=== PATIENT | female | born 1955 | race Caucasian/White ===

== ENCOUNTER 2016-12-06 01:03 | Observation (INO) ==
--- NOTE | 2016-12-06 01:14 | Emergency Department Note ---
Disposition Clinical Impression: Neurologic abnormality Disposition: Admitted As Inpatient Condition: Fair Time of Disposition: 04:12 Neuro HPI - General Chief Complaint: ED Neuro Symptoms/Deficit Stated Complaint: slurred speech Time Seen by Provider: 12/06/16 01:06 Source: patient, EMS Limitations: no limitations Nursing Notes Reviewed: Yes Vital Signs Reviewed: Yes - History of Present Illness HPI Narrative: Ms. Harris, a 61-year-old female, presents from home via EMS for evaluation of neuro symptoms. Described as weakness and slurred speech. Onset 13:30 on 12/05 (11.5 hours prior to presentation). Patient states she typically has these symptoms when she is hypoglycemic. Her family was giving her food to correct however they did not test her blood glucose. Her blood glucose this morning was 79. Patient also admits to slurring of speech. She is unsure specifically what time this began but believes it was around the same time as her weakness at 13:30. It is unchanged to presentation. There is no family bedside for confirmation. Patient denies any other symptoms. PMH: Obesity, coronary smoker, diabetes, hypothyroidism, CAD, hyperlipidemia, retention. No history of ACS, TIA, CVA, coagulopathy. Current antiplatelet of aspirin 81 mg daily. No anticoagulation. - Related Data Home Medications: Home Medications Medication Instructions Recorded Confirmed ALPRAZolam [Xanax 0.5 MG Tablet] 0.5 mg PO TID 01/30/15 04/22/16 Amitriptyline [Elavil] 50 mg PO HS 01/30/15 04/22/16 Aspirin [Adult Low Dose Aspirin EC] 81 mg PO DAILY 01/30/15 04/22/16 Atorvastatin Calcium [Lipitor] 20 mg PO DAILY 01/30/15 04/22/16 Duloxetine HCl [Cymbalta] 60 mg PO DAILY 01/30/15 04/22/16 Furosemide [Lasix] 10 mg PO DAILY PRN 01/30/15 04/22/16 Levothyroxine [Synthroid] 275 mcg PO DAILY 01/30/15 04/22/16 Lisinopril [Zestril] 40 mg PO DAILY 01/30/15 04/22/16 Loratadine [Claritin] 10 mg PO HS 01/30/15 04/22/16 OxyCODONE ER (12 HR) [Oxycontin] 15 mg PO Q4-6H PRN 01/30/15 04/22/16 Potassium Chloride [K-Tab ER] 20 meq PO DAILY PRN 01/30/15 04/22/16 Pregabalin [Lyrica] 100 mg PO BID 01/30/15 04/22/16 Trazodone HCl 200 mg PO HS 01/30/15 04/22/16 Venlafaxine [Effexor] 75 mg PO BID 01/30/15 04/22/16 metFORMIN [Glucophage] 750 mg PO HS 01/30/15 04/22/16 Cholecalciferol (Vitamin D3) 50,000 unit PO QWEEK 07/08/15 04/22/16 [Vitamin D] Insulin ASPART [NovoLOG] 9 unit SQ TID 07/08/15 04/22/16 Insulin Glargine,Hum.rec.anlog 73 unit SQ BID 07/08/15 04/22/16 [Lantus Solostar] SitaGLIPtin [Januvia] 100 mg PO DAILY 07/08/15 04/22/16 amLODIPine [Norvasc] 5 mg PO DAILY 04/22/16 04/22/16 Previous Rx's Medication Instructions Recorded Phenazopyridine [Pyridium] 200 mg PO TID #15 tablet 07/04/15 Dicyclomine [Bentyl] 20 mg PO QID PRN #40 capsule 07/09/15 Allergies/Adverse Reactions: Allergies Allergy/AdvReac Type Severity Reaction Status Date / Time Sulfa (Sulfonamide Allergy Intermediate Hives Verified 01/09/15 15:16 Antibiotics) cefdinir [From Omnicef] Allergy Difficulty Verified 01/30/15 13:44 Breathing Ether Allergy Anaphylaxis Verified 01/30/15 13:44 Penicillins [PCN] Allergy Anaphylaxis Verified 01/09/15 15:16 Methadone [From Methadose] AdvReac Drowsy Verified 01/09/15 15:18 All systems ED: reviewed and negative except as stated. Past Medical History - Past Medical History Medical history: Reports: asthma, cancer, DVT, diabetes, hyperlipidemia, hypertension, migraine, renal disease, thyroid disease, other Surgical history: Reports: herniorrhaphy, hysterectomy, ZANDER/BSO, other Psychiatric history: Reports: anxiety, depression, panic disorder TWISTER IN history: Reports: no TWISTER IN history - Social History Smoking Status: Light tobacco smoker Smokeless Tobacco Status: No Alcohol use: Reports: unknown Drug use: Reports: unknown Physical Exam Vital Signs Reviewed General: Patient is alert, oriented, and in no acute distress. HEENT: No facial asymmetry. Head is normocephalic and atraumatic. PERRLA, EOMI. oral mucosa moist. Trachea midline. Cardiovascular: Heart regular rate and rhythm without clicks, rubs, gallops, or murmurs. No JVD. PMI nondisplaced. Respiratory: Symmetric chest rise with good respiratory effort. Bilateral breath sounds are clear without wheezing, crackles, or rhonchi. Abdomen: Obese. Bowel sounds present normoactive x-4 quadrants. Abdomen is soft, nondistended, and nontender. Musculoskeletal: Muscle strength 5/5 in left lower extremity. Strength 5/5 in left upper extremity. Strength 4/5 and right upper extremity. Patient refuses strength testing or motion testing and right lower extremity citing diabetic ulcer on her right anterior tibia as well as chronic lower back pain. Neuro: Cranial nerves II through XII without deficit. No upper or lower extremity limb drift. No pronator drift. Negative heel to trevizo with left heel on right trevizo. Negative rapid alternating hands. Sensation light touch intact. Very mild slurring of speech; no family at bedside to compare to her baseline. Psych: Patient's affect is appropriate for situation. - General Limitations: no limitations General appearance: alert, in no apparent distress Course Course Narrative: Patient is not a TPA candidate given her last known normal is 11.5 hours prior to presentation. CT head negative for acute hemorrhage per radiology read. EKG unremarkable. Negative troponin. Chest x-ray unremarkable per radiology read. Blood work does show mild leukocytosis however it is otherwise unremarkable; elevated creatinine which is consistent with her baseline. Recommended admission given patient's multiple comorbidities and somewhat concerning story. Spoke with him in hospitals who agrees to accept her to his service for continued evaluation workup. Vital Signs Temperature 98.7 F 12/06/16 01:04 Pulse Rate 86 12/06/16 01:04 Respiratory Rate 18 12/06/16 01:04 Blood Pressure 132/107 12/06/16 01:04 O2 Sat by Pulse Oximetry 97 12/06/16 01:04 Temperature 98.4 F 12/06/16 02:50 Pulse Rate 85 06/30/17 02:50 Respiratory Rate 18 12/06/16 02:50 Blood Pressure 124/98 12/06/16 02:50 O2 Sat by Pulse Oximetry 97 12/06/16 01:04 Oxygen Delivery Oxygen Delivery Room Air Neuro Symptoms/Deficit - Medical Records Medical records reviewed: Yes I reviewed the patient's medical records. - Lab Data Lab results reviewed: Yes I reviewed the patient's lab results. Result diagrams: 12/06/16 01:15 12/06/16 01:15 Lab Results 12/06/16 12/06/16 12/06/16 Range/Units 01:12 01:15 01:15 WBC 12.1 H (4.3-11.1) K/mcL RBC 4.84 (3.82-4.97) M/mcL Hgb 13.6 (11.5-15.4) g/dL Hct 42.3 (35.3-44.9) % MCV 87.4 (83.0-100.0) fL MCH 28.1 (28.0-33.3) pg MCHC 32.2 (31.6-35.5) g/dL RDW 15.5 H (11.5-14.5) % Plt Count 289 (140-400) K/mcL MPV 10.0 (9.4-12.4) fL Immature Gran % 0.4 (0-4) % Seg Neutrophils % 72.4 % Lymphocytes % 19.2 % Monocytes % 7.0 % Eosinophils % 0.5 % Basophils % 0.5 % Neutrophils # 8.8 (1.6-8.9) K/mcL Lymphocytes # 2.3 (0.6-4.6) K/mcL Monocytes # 0.9 (0.0-1.3) K/mcL Eosinophils # 0.1 (0.0-0.6) K/mcL Basophils # 0.1 (0.0-0.2) K/mcL PT 10.5 (9.4-12.1) Seconds INR 1.0 APTT 33.3 (26.0-36.0) Seconds Sodium (136-145) mEq/L Potassium (3.5-4.5) mEq/L Chloride (98-109) mEq/L Carbon Dioxide (19-29) mEq/L BUN (7-20) mg/dL Creatinine (0.57-1.11) mg/dL Est GFR ( Amer) (> 60) Est GFR (Non-Af Amer) (> 60) BUN/Creatinine Ratio (6-26) Glucose (70-99) mg/dL POC Glucose 260 H (58-89) Calculated Osmolality (280-300) Calcium (8.6-10.8) mg/dL Troponin I (0-0.03) ng/mL 12/06/16 12/06/16 Range/Units 01:15 01:15 WBC (4.3-11.1) K/mcL RBC (3.82-4.97) M/mcL Hgb (11.5-15.4) g/dL Hct (35.3-44.9) % MCV (83.0-100.0) fL MCH (28.0-33.3) pg MCHC (31.6-35.5) g/dL RDW (11.5-14.5) % Plt Count (140-400) K/mcL MPV (9.4-12.4) fL Immature Gran % (0-4) % Seg Neutrophils % % Lymphocytes % % Monocytes % % Eosinophils % % Basophils % % Neutrophils # (1.6-8.9) K/mcL Lymphocytes # (0.6-4.6) K/mcL Monocytes # (0.0-1.3) K/mcL Eosinophils # (0.0-0.6) K/mcL Basophils # (0.0-0.2) K/mcL PT (9.4-12.1) Seconds INR APTT (26.0-36.0) Seconds Sodium 139 (136-145) mEq/L Potassium 4.0 (3.5-4.5) mEq/L Chloride 103 (98-109) mEq/L Carbon Dioxide 29 (19-29) mEq/L BUN 15 (7-20) mg/dL Creatinine 1.15 H (0.57-1.11) mg/dL Est GFR ( Amer) 58 L (> 60) Est GFR (Non-Af Amer) 48 L (> 60) BUN/Creatinine Ratio 13 (6-26) Glucose 256 H (70-99) mg/dL POC Glucose (58-89) Calculated Osmolality 298 (280-300) Calcium 9.4 (8.6-10.8) mg/dL Troponin I 0.00 (0-0.03) ng/mL - Radiology Data Radiology results reviewed: Yes I reviewed the patient's radiology results. Head CT 12/06/16 01:14 IMPRESSION: No acute intracranial abnormality. D/ / Rangel Vivas MD / Rangel Vivas MD Interpreting Provider: Rangel Vivas MD - EKG Data EKG attestation: Yes I reviewed and interpreted this EKG. EKG results narrative: EKG data 12/06/16 at 01:24 interpreted as sinus rhythm with a rate of 80. NE 202 , to rest and 2, QT/QTC 360 sinus 396. Normal axis. Nonspecific ST-T changes. Compared to previous dated 12/14/2013 showed no acute ischemic changes or comparison. NIH Stroke Scale - Level of Consciousness LOC: Alert - LOC Questions LOC Questions: Answers both correctly - LOC Commands LOC Commands: Performs both correctly - Best Gaze Best Gaze: Normal - Visual Visual: No visual loss - Facial Palsy Facial Palsy: Normal - Motor Arms Motor Arm-Left: No drift for 10 seconds Motor Arm-Right: No drift for 10 seconds - Motor Legs Motor Leg-Left: No drift for 5 seconds Motor Leg-Right: No drift for 5 seconds (Patient refused due to diabetic ulcer and chronic back pain) - Limb Ataxia Limb Ataxia: Absent of affected limb too weak to perform exam - Sensory Sensory: Normal - Best Language Best Language: No aphasia - Dysarthria Dysarthria: Mild, slurs some words - Extinction and Inattention Extinction and Inattention: Normal - NIHSS Total Score NIHSS Total Score: 1 TPA Checklist - Source Information Source: Patient - Eligibilty for IV tPA 1. LKW equal to or less than 4.5 hours be before treatment: No - LKW: 3-4.5 hrs Add. Warnings/Precautions Patient/family understanding: The patient/family members have been counseled and understood the risk, benefit , and alternatives of treatment.
--- NOTE | 2016-12-06 01:20 | Emergency Department Note ---
START Narrative - START START: I examined this patient and my medical decision-making was reviewed with the CHICK GRADER/PA/Advanced Practice Nurse/Resident Physician. I agree with the documented findings, disposition and treatment plan as described except to the extent set forth below. ED attending note: Patient seen with emergency medicine resident Dr. Bartlett. Please see a copy of his note for details of the H&P, evaluation, management and disposition of this patient. We independently had [id number] contact with the patient Briefly: A 61-year-old female by EMS presents with history of slurred speech. Symptoms began at 1:30 yesterday afternoon. Patient is diabetic and thought that she had blood sugars were low although her sugars measured at home was measured was 73. There is approximately 220 per EMS. Her NIH is 1. There was some mild apraxia but no aphasia no facial asymmetry slight weakness of the right upper extremity. The patient is well outside the window of TPA and so possibly is not a stroke alert at this time. Noncontrast head CT EKG labs and chest x-ray are pending. Disposition pending.
[2016-12-06 01:29] LABS: Basophils # 0.1 K/mcL (0.0-0.2); Basophils % 0.5 %; Eosinophils # 0.1 K/mcL (0.0-0.6); Eosinophils % 0.5 %; Hematocrit 42.3 % (35.3-44.9); Hemoglobin 13.6 g/dL (11.5-15.4); Immature Granulocytes % 0.4 % (0-4); Lymphocytes # 2.3 K/mcL (0.6-4.6); Lymphocytes % 19.2 %; Mean Corpuscular HGB Conc 32.2 g/dL (31.6-35.5); Mean Corpuscular Hemoglobin 28.1 pg (28.0-33.3); Mean Corpuscular Volume 87.4 fL (83.0-100.0); Monocytes # 0.9 K/mcL (0.0-1.3); Neutrophils # 8.8 K/mcL (1.6-8.9); Platelet Count 289 K/mcL (140-400); Red Blood Count 4.84 M/mcL (3.82-4.97); Red Cell Distribution Width 15.5 % (11.5-14.5); Segmented Neutrophils % 72.4 %
[2016-12-06 01:38] LABS: Prothrombin Time 10.5 Seconds (9.4-12.1)
[2016-12-06 01:40] LABS: Activated Partial Thrombo Time 33.3 Seconds (26.0-36.0)
[2016-12-06 01:42] LABS: Calcium 9.4 mg/dL (8.6-10.8)
[2016-12-06] MEDS ORDERED: Aspirin 325 MG TABLET PO ONE (03:00)
--- NOTE | 2016-12-06 04:15 | Internal Med History&Physical ---
Date of Encounter: 12/06/16 Time of Encounter: 04:15 Assessment and Plan (1) Slurred speech Current visit: Yes Status: Acute we need to exclude TIA. Will consult speech therapy. Obtain MRI of the brain without contrast, carotid Doppler, echocardiogram. Consider Neurology consult, based on the test results. (2) Lethargy Current visit: Yes Status: Acute Possibly due to hypoglycemia. Will obtain UA to exclude UTI and check TSH level (3) Diabetes mellitus Current visit: Yes Status: Chronic Continue home medications and sliding scale insulin (4) Hypertension Current visit: Yes Status: Chronic Continue home medications Qualifiers: Hypertension type: essential hypertension Qualified Code(s): I10 - Essential (primary) hypertension (5) Hypothyroidism Current visit: Yes Status: Chronic Continue synthroid. Check TSH level Qualifiers: Hypothyroidism type: unspecified Qualified Code(s): E03.9 - Hypothyroidism , unspecified (6) Chronic back pain Current visit: Yes Status: Chronic COntinue home medications Qualifiers: Back pain location: low back pain Back pain laterality: unspecified Sciatica presence: unspecified whether sciatica present Qualified Code(s): M54.5 - Low back pain; G89.29 - Other chronic pain Internal Medicine - H&P: HPI Chief complaint: slurred speech Admitted From: Emergency Dept Plans for Post Hospital Care: Home History of present illness: Ms. Harris is a 61 year old female With h/o diabetes, hypothyroidism, CAD, hypertension, chronic back pain She presented to the ER with feeling lethargic her family was concerned about hypoglycemia and fed her. She was noted to have slurred speech and hence brought to the emergency department. Pt reports that her grand-daughter was concerned about slurred speech, but pt is not sure. She denies difficulty swallowing or choking. She denies facial weakness, blurry vision. She has 3 day h/o frontal headache. She denies weakness of the extremities (she has long h/o numbness of the right leg below the knee, secondary to back surgery). Chest pain, shortness of breath, nausea, vomiting, fever, chills, abdominal pain, dysuria, hematuria, change in bowel habits. She was evaluated in the emergency department and CT head reported No acute intracranial abnormality. NIHSS 1. Pt was outside window for thrombolysis (11.5 hours prior to presentation), hence ER physician did not consult neurologist. He is admitted to the hospitalist service for further management. Past Med Surg Social Fam HX - Past Medical History Medical history: asthma, cancer, DVT, diabetes, hyperlipidemia, hypertension, migraine, renal disease, thyroid disease, other Psychiatric history: anxiety, depression, panic disorder - Past Surgical History Surgical History: herniorrhaphy, hysterectomy, ZANDER/BSO, other - Social History Smoking Status: Light tobacco smoker Smokeless Tobacco Status: No Alcohol use: unknown Drug use: unknown - Family History Father Living Status: Hx Family Cardiac Disorders: Yes (HTN) Hx Family Neuromuscular Disorders: Yes Internal Medicine - H&P: Meds ALPRAZolam [Xanax 0.5 MG Tablet] 0.5 mg PO TID 01/30/15 [History] Amitriptyline [Elavil] 50 mg PO HS 01/30/15 [History] Aspirin [Adult Low Dose Aspirin EC] 81 mg PO DAILY 01/30/15 [History] Atorvastatin Calcium [Lipitor] 20 mg PO DAILY 01/30/15 [History] Duloxetine HCl [Cymbalta] 60 mg PO DAILY 01/30/15 [History] Furosemide [Lasix] 10 mg PO DAILY PRN 01/30/15 [History] Levothyroxine [Synthroid] 275 mcg PO DAILY 01/30/15 [History] Lisinopril [Zestril] 40 mg PO DAILY 01/30/15 [History] Loratadine [Claritin] 10 mg PO HS 01/30/15 [History] OxyCODONE ER (12 HR) [Oxycontin] 15 mg PO Q4-6H PRN 01/30/15 [History] Potassium Chloride [K-Tab ER] 20 meq PO DAILY PRN 01/30/15 [History] Pregabalin [Lyrica] 100 mg PO BID 01/30/15 [History] Trazodone HCl 200 mg PO HS 01/30/15 [History] Venlafaxine [Effexor] 75 mg PO BID 01/30/15 [History] metFORMIN [Glucophage] 750 mg PO HS 01/30/15 [History] Phenazopyridine [Pyridium] 200 mg PO TID #15 tablet 07/04/15 [Rx] Cholecalciferol (Vitamin D3) [Vitamin D] 50,000 unit PO QWEEK 07/08/15 [History] Insulin ASPART [NovoLOG] 9 unit SQ TID 07/08/15 [History] Insulin Glargine,Hum.rec.anlog [Lantus Solostar] 73 unit SQ BID 07/08/15 [ History] SitaGLIPtin [Januvia] 100 mg PO DAILY 07/08/15 [History] Dicyclomine [Bentyl] 20 mg PO QID PRN #40 capsule 07/09/15 [Rx] amLODIPine [Norvasc] 5 mg PO DAILY 04/22/16 [History] Allergies Sulfa (Sulfonamide Antibiotics) Allergy (Intermediate, Verified 01/09/15 15:16) Hives cefdinir [From Omnicef] Allergy (Verified 01/30/15 13:44) Difficulty Breathing Ether Allergy (Verified 01/30/15 13:44) Anaphylaxis Penicillins [PCN] Allergy (Verified 01/09/15 15:16) Anaphylaxis Methadone [From Methadose] Adverse Reaction (Verified 01/09/15 15:18) Drowsy All Systems PM: A 10-system review of systems was performed and is negative for pertinent findings except as documented above in the HPI. - Constitutional Vitals: Temp Pulse Resp BP Pulse Ox 98.4 F 85 18 124/98 97 12/06/16 02:50 12/06/16 02:50 12/06/16 02:50 12/06/16 02:50 12/06/16 01:04 Exam: General: Not in acute distress at the time of my evaluation HEENT: Oral mucosa is moist. No conjunctival palor or scleral icterus Neck: No obvious neck swellings Lungs: Clear to auscultation Cardiac: Regular rate and rhythm. Systolic murmur present Abdomen: Soft, non tender. Bowel sounds present Genitourinary: No basurto catheter Neurological: Alert and oriented. No gross cranial nerve weakness or limb weakness noted. Chronic right leg numbness Psych: Not aggressive or agitated Extremities: no significant leg edema Skin: No generalized rash Internal Med - H&P Results - Labs CBC & Chem 7: 12/06/16 01:15 12/06/16 04:33 - EKG Data -: EKG Interpreted by Myself EKG shows normal: sinus rhythm Rate: normal - Impressions ITS Impressions Head CT 12/06/16 01:14 IMPRESSION: No acute intracranial abnormality. D/ / Rangel Vivas MD / Rangel Vivas MD Interpreting Provider: Rangel Vivas MD
[2016-12-06] MEDS ORDERED: Naloxone 0.4 MG/ML INJ IVP PRN (04:20)
[2016-12-06 05:08] LABS: BUN/Creatinine Ratio 14 (6-26); Blood Urea Nitrogen 15 mg/dL (7-20); Calcium 9.4 mg/dL (8.6-10.8); Carbon Dioxide 30 mEq/L (19-29); Chloride 104 mEq/L (98-109); Chol/HDL Ratio 4.6 (0-4.9); Cholesterol 114 mg/dL (< 200); Glucose 174 mg/dL (70-99); HDL Cholesterol 25 mg/dL (40-59); LDL Cholesterol,Calculated 42 mg/dL (0-99); Magnesium 1.7 mg/dL (1.6-2.6); Osmolality,Calculated 295 (280-300); Potassium 3.9 mEq/L (3.5-4.5); Sodium 140 mEq/L (136-145); Triglycerides 233 mg/dL (< 150); eGFR For African Americans > 60 (> 60); eGFR For Non-African Americans 51 (> 60)
[2016-12-06] MEDS ORDERED: D5% in Water 1,000 ML IVC PRN (06:16)
[2016-12-06] MEDS ORDERED: Dextrose Gel 15 GM PO PRN ×2 (06:16)
[2016-12-06] MEDS ORDERED: *HR* Dextrose 50 % in Water (Syg) 50 ML SYRINGE IVP PRN (06:16)
[2016-12-06] MEDS: Insulin LISPRO 300 UNITS/3 ML VIAL SQ SCH ×4 (07:39→17:05)
[2016-12-06] MEDS ORDERED: Perflutren Lipid Microsphere 1.3 ML in 0.9 % Sodium Chloride 8.7 ML IVP ONE (09:52)
[2016-12-06] MEDS ORDERED: SUMAtriptan succinate 50 MG TABLET PO PRN (12:13)
[2016-12-06] MEDS ORDERED: Acetaminophen/Butalbital/CaffeineTABLET PO PRN (12:13)
[2016-12-06] MEDS ORDERED: tiZANidine 4 MG TABLET PO PRN (12:13)
[2016-12-06] MEDS ORDERED: Furosemide 20 MG TABLET PO PRN (12:13)
[2016-12-06] MEDS: *HR* OxyCODONE Immed Rel 15 MG TABLET PO PRN (13:09)
[2016-12-06] MEDS: ALPRAZolam 0.5 MG TABLET PO SCH ×2 (13:10→20:25)
[2016-12-06] MEDS: Pregabalin 75 MG CAPSULE PO SCH ×2 (13:10→20:25)
[2016-12-06] MEDS: Cholecalciferol (D-3) 1,000 UNIT TABLET PO SCH (13:10)
--- NOTE | 2016-12-06 13:12 | Electrocardiograph Report ---
[place] [id number] Test Date: 2016-12-06 Pat Name: Buffy Harris Department: 105 Room: [id number] Gender: F Telephone Answering Service Operator: : [id number] Requested By: Vernon Bartlett Order Number: [id number] Reading MD: Patrice Simth MD Measurements Intervals [place] Rate: 80 P: 42 CA: 202 QRS: -5 QRSD: 92 T: 42 QT: 360 QTc: 396 Interpretive Statements SINUS RHYTHM LOW QRS VOLTAGE IN PRECORDIAL LEADS BASELINE ARTIFACT Electronically Signed On 12-06-2016 13:10:25 EDT by Patrice Smith MD
--- NOTE | 2016-12-06 15:18 | Neurology - Consult Note ---
Date of Encounter: 12/06/16 Time of Encounter: 15:13 Assessment and Plan (1) TIA (transient ischemic attack) Current Visit: Yes Status: Acute Patient developed lethargy, somnolence and slurred speech lasting less than few hours in duration without focal deficits with rapidly improvement. Currently, patient has no focal neurological deficits and her speech fluency and language content are normalized, no focal weakness except right leg weakness which is chronic in nature. The symptoms can certainly be complicated by medical conditions/possible medication side effects although TIA work up is certainly needed. Will agree with obtaining echocardiography and carotid artery duplex study. Will Continue aspirin 81mg daily without change at this time. Please continue medical and supportive care Qualifiers: Transient cerebral ischemia type: unspecified Qualified Code(s): G45.9 - Transient cerebral ischemic attack, unspecified History of Present Illness Chief complaint: lethagy and slurred speech HPI: Ms. Harris is a 61 year old female 61 year old woman with PMH significant for DM , HTN, obesity, chronic back pain who developed an episode of lethagy, somnolence and speech difficulty. This occurred in this morning, she was at her home and became lethagic to a point that her granddaughter had to yell at her to try to keep her awake. At the time, she was found to have slurry speech and though that she might be having a stroke and brought to ER. At the time when she arrived to ER her symptoms rapidly improved. She completed MR of brain without contrast which showed no acute infarct. At the time of her interview, her speech appears intact, denies significant focal weakness. 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 Takes Aspirin 81mg daily. Past Med Surg Social Fam HX - Past Medical History Medical history: asthma, cancer, DVT, diabetes, hyperlipidemia, hypertension, migraine, renal disease, thyroid disease, other Psychiatric history: anxiety, depression, panic disorder - Past Surgical History Surgical History: herniorrhaphy, hysterectomy, ZANDER/BSO, other - Social History Smoking Status: Light tobacco smoker Smokeless Tobacco Status: No Alcohol use: unknown Drug use: unknown - Family History Father Living Status: Hx Family Cardiac Disorders: Yes (HTN) Hx Family Neuromuscular Disorders: Yes Medications and Allergies ALPRAZolam [Xanax 0.5 MG Tablet] 0.5 mg PO TID 01/30/15 [History] Amitriptyline [Elavil] 50 mg PO HS 01/30/15 [History] Aspirin [Adult Low Dose Aspirin EC] 81 mg PO DAILY 01/30/15 [History] Atorvastatin Calcium [Lipitor] 40 mg PO DAILY 01/30/15 [History] Furosemide [Lasix] 20 mg PO DAILY PRN 01/30/15 [History] Levothyroxine [Synthroid] 275 mcg PO DAILY 01/30/15 [History] Lisinopril [Zestril] 20 mg PO DAILY 01/30/15 [History] Loratadine [Claritin] 10 mg PO HS 01/30/15 [History] Potassium Chloride [K-Tab ER] 20 meq PO DAILY PRN 01/30/15 [History] Pregabalin [Lyrica] 75 mg PO TID 01/30/15 [History] Trazodone HCl 200 mg PO HS 01/30/15 [History] Venlafaxine [Effexor] 75 mg PO BID 01/30/15 [History] Cholecalciferol (Vitamin D3) [Vitamin D] 50,000 unit PO QWEEK 07/08/15 [History] Insulin ASPART [NovoLOG] 9 unit SQ TIDWM 07/08/15 [History] Insulin Glargine,Hum.rec.anlog [Lantus Solostar] 70 unit SQ BID 07/08/15 [ History] SitaGLIPtin [Januvia] 100 mg PO DAILY 07/08/15 [History] amLODIPine [Norvasc] 5 mg PO DAILY 04/22/16 [History] Butalbital/Aspirin/Caffeine [Fiorinal 50-325-40 mg Capsule] 1 cap PO BID PRN [History] Ferrous Sulfate [Iron] 325 mg PO DAILY 12/06/16 [History] Metformin HCl [Glucophage Xr] 750 mg PO DAILY 12/06/16 [History] Oxycodone HCl 15 mg PO Q6H PRN 12/06/16 [History] SUMAtriptan Succinate [Imitrex] 100 mg PO DAILY PRN 12/06/16 [History] Tizanidine HCl 4 mg PO TID PRN 12/06/16 [History] Allergies Sulfa (Sulfonamide Antibiotics) Allergy (Intermediate, Verified 01/09/15 15:16) Hives cefdinir [From Omnicef] Allergy (Verified 01/30/15 13:44) Difficulty Breathing Ether Allergy (Verified 01/30/15 13:44) Anaphylaxis Penicillins [PCN] Allergy (Verified 01/09/15 15:16) Anaphylaxis Methadone [From Methadose] Adverse Reaction (Verified 01/09/15 15:18) Drowsy All Systems: A 10-system review of systems was performed and is negative for pertinent findings except as documented above in the HPI. Physical Examination - Vital Signs Vital Signs: Initial Vital Signs Temp Pulse Resp BP Pulse Ox 98.7 F 86 18 132/107 97 12/06/16 01:04 12/06/16 01:04 12/06/16 01:04 12/06/16 01:04 12/06/16 01:04 - Constitutional General appearance: chronically ill - Neurologic Sensorimotor examination: other (Grossly intact in her upper extremities. Right legis in wrapping due to skin infection) Motor examination - right side: 5/5: deltoids, biceps, triceps, wrist flexion, wrist extension, small parts assembler Motor examination - left side: 5/5: deltoids, biceps, triceps, wrist flexion, wrist extension, hip flexors, small parts assembler, quadriceps, tibialis Anterior, toe extension (EHL), plantarflexion Detailed sensory examination: other (Grossly intact, except unable to check right leg due to wrapping) Reflexes: Biceps: 0, Triceps: 0, Brachioradialis: 0, Patella: 0, Achilles: 0 Mental Status Examination: awake, alert, oriented to person, oriented to place, oriented to time, follows commands appropriately, answers questions appropriately, no agnosia, no aphasia, no aproxia Cranial nerve examination: PERRL, EOMI, visual lora intact, corneal reflexes brisk symmetrically, sensory to face intact, mastication intact, no facial asymmetry is present, no dysarthria, hearing is intact symmetrically, soft palate elevates bilaterally upon phonation, gag reflex intact, flexes SCM and trapezius muscles symmetrically with full power, tongue protrudes midline, no atrophy or facial fasiculations present Results - Laboratory Findings CBC and BMP: 12/06/16 01:15 12/06/16 04:33 Abnormal lab findings: Abnormal lab results WBC 12.1 K/mcL (4.3-11.1) H 12/06/16 01:15 RDW 15.5 % (11.5-14.5) H 12/06/16 01:15 Carbon Dioxide 30 mEq/L (19-29) H 12/06/16 04:33 Est GFR (Non-Af Amer) 51 (> 60) L 12/06/16 04:33 Glucose 174 mg/dL (70-99) H 12/06/16 04:33 POC Glucose 260 (58-89) H 12/06/16 01:12 Triglycerides 233 mg/dL (< 150) H 12/06/16 04:33 VLDL Cholesterol, Calc 47 mg/dL (< 31) H 12/06/16 04:33 HDL Cholesterol 25 mg/dL (40-59) L 12/06/16 04:33 Consult Discharge Plan - Plan Referrals: Reagan Traore MD [Primary Care Provider] -
--- NOTE | 2016-12-06 16:13 | Carotid Imaging Report ---
Carotid Duplex Patient Name:Buffy Harris Order Number:[id number] Procedure Date:12/06/2016 Date:5Age:61 yrs Gender:Female Location:[facility] Room #: 2NE16 Service Superintendent:Kathleen Herrmann Referring MD:Nicolasa Salinas MD remote sensing program manager:Reagan Traore MD Reading MD:Javier Valle MD Risk Factors Yes/No Hypertension Yes Diabetes Yes Hypercholesterolemia Yes Smoking Current Yes Impressions: Findings: Bilateral proximal ICA has a severe, 60-79% stenosis. Recommendations: Risk Factor Modification, Medical Therapy, and Follow up exam 12 months. Findings Carotid Duplex: Right: The right proximal common carotid artery has a PSV of 72 cm/s and a EDV of 23 cm/s. The right mid common carotid artery has a PSV of 76 cm/s and a EDV of 26 cm/s. The right distal common carotid artery has a PSV of 63 cm/s and a EDV of 21 cm/s. There is nonstenotic plaque in the right bifurcation with a PSV of 92 cm/s and a EDV of 34 cm/s. There is smooth heterogeneous plaque. There is 60-79% stenosis in the right proximal internal carotid artery with a PSV of 196 cm/s and a EDV of 61 cm/s. There is smooth heterogeneous plaque. There is 60-79% stenosis in the right mid internal carotid artery with a PSV of 173 cm/s and a EDV of 62 cm/s. The right distal internal carotid artery has a PSV of 78 cm/s and a EDV of 35 cm/s. The right eca has a PSV of 105 cm/s and a EDV of 17 cm/s. The right vertebral artery has a PSV of 57 cm/s and a EDV of 16 cm/s. Left: The left proximal common carotid artery has a PSV of 96 cm/s and a EDV of 27 cm/s. The left mid common carotid artery has a PSV of 95 cm/s and a EDV of 30 cm/s. The left distal common carotid artery has a PSV of 76 cm/s and a EDV of 26 cm/s. The left bifurcation has a PSV of 76 cm/s and a EDV of 30 cm/s. There is 60-79% stenosis in the left proximal internal carotid artery with a PSV of 159 cm/s and a EDV of 50 cm/s. There is smooth heterogeneous plaque. There is 60-79% stenosis in the left mid internal carotid artery with a PSV of 168 cm/s and a EDV of 60 cm/s. The left distal internal carotid artery has a PSV of 94 cm/s and a EDV of 42 cm/s. There is nonstenotic plaque in the left eca with a PSV of 127 cm/s and a EDV of 20 cm/s. There is smooth heterogeneous plaque. The left vertebral artery has a PSV of 47 cm/s and a EDV of 11 cm/s. Carotid Results Right PSV EDV Assessment Proximal CCA 72 23 Normal Mid CCA 76 26 Normal Distal CCA 63 21 Normal Bifurcation 92 34 Non Stenotic Plaque Proximal ICA 196 61 60-79% stenosis Mid ICA 173 62 60-79% stenosis Distal ICA 78 35 Normal ECA 105 17 Normal Vertebral Artery 57 16 Normal Left PSV EDV Assessment Proximal CCA 96 27 Normal Mid CCA 95 30 Normal Distal CCA 76 26 Normal Bifurcation 76 30 Normal Proximal ICA 159 50 60-79% stenosis Mid ICA 168 60 60-79% stenosis Distal ICA 94 42 Normal ECA 127 20 Non Stenotic Plaque Vertebral Artery 47 11 Normal Ratio's Right ICA/CCA Ratio: 2.60 ICA/CCA Values: 196/76 Left ICA/CCA Ratio: 1.80 ICA/CCA Values: 168/95 Updated by Javier Valle MD on 12/06/2016 4:07:39 PM electronically signed on 12/06/2016 4:08:45 PM with status of Final
--- NOTE | 2016-12-06 16:39 | Vascular/Endovasc Consult Note ---
Date of Encounter: 12/06/16 Time of Encounter: 16:40 Assessment and Plan (1) Bilateral carotid artery stenosis without cerebral infarction Current Visit: Yes Status: Acute Bilateral 60-79% carotid artery stenosis, low end. I personally reviewed the carotid duplex in the plaque structure does not appear to be consistent with acute plaque rupture and the amount of plaque is actually minimal. Based on these findings I have recommended outpatient follow-up and serial carotid duplex evaluation. She is to return to the emergency room for any further symptoms. No further workup at this time. - History of Present Illness Consult date: 12/06/16 Consult reason: APHASIA Chief complaint: Aphasia History of present illness: Ms. Harris is a 61 year old female He developed slurred speech for a short period of time at home. She was evaluated in the emergency department. MR of the brain failed to demonstrate any acute infarct. A follow-up carotid duplex evaluation demonstrated bilateral proximal internal carotid artery 60-79% stenosis. Vertebral flow is antegrade. Peak systolic flow velocities on the right were 196/61 and peak systolic flow velocities on the left were 168/60. I personally reviewed the duplex. There is very little in the way of internal carotid artery plaque. This does not appear to be an acute plaque rupture. At time of evaluation she has normal speech pattern and no residual neurologic deficit. Past Med Surg Social Fam HX - Past Medical History Medical history: asthma, cancer, DVT, diabetes, hyperlipidemia, hypertension, migraine, renal disease, thyroid disease, other Psychiatric history: anxiety, depression, panic disorder - Past Surgical History Surgical History: herniorrhaphy, hysterectomy, ZANDER/BSO, other - Social History Smoking Status: Light tobacco smoker Smokeless Tobacco Status: No Alcohol use: unknown Drug use: unknown - Family History Father Living Status: Hx Family Cardiac Disorders: Yes (HTN) Hx Family Neuromuscular Disorders: Yes Medications and Allergies ALPRAZolam [Xanax 0.5 MG Tablet] 0.5 mg PO TID 01/30/15 [History] Amitriptyline [Elavil] 50 mg PO HS 01/30/15 [History] Aspirin [Adult Low Dose Aspirin EC] 81 mg PO DAILY 01/30/15 [History] Atorvastatin Calcium [Lipitor] 40 mg PO DAILY 01/30/15 [History] Furosemide [Lasix] 20 mg PO DAILY PRN 01/30/15 [History] Levothyroxine [Synthroid] 275 mcg PO DAILY 01/30/15 [History] Lisinopril [Zestril] 20 mg PO DAILY 01/30/15 [History] Loratadine [Claritin] 10 mg PO HS 01/30/15 [History] Potassium Chloride [K-Tab ER] 20 meq PO DAILY PRN 01/30/15 [History] Pregabalin [Lyrica] 75 mg PO TID 01/30/15 [History] Trazodone HCl 200 mg PO HS 01/30/15 [History] Venlafaxine [Effexor] 75 mg PO BID 01/30/15 [History] Cholecalciferol (Vitamin D3) [Vitamin D] 50,000 unit PO QWEEK 07/08/15 [History] Insulin ASPART [NovoLOG] 9 unit SQ TIDWM 07/08/15 [History] Insulin Glargine,Hum.rec.anlog [Lantus Solostar] 70 unit SQ BID 07/08/15 [ History] SitaGLIPtin [Januvia] 100 mg PO DAILY 07/08/15 [History] amLODIPine [Norvasc] 5 mg PO DAILY 04/22/16 [History] Butalbital/Aspirin/Caffeine [Fiorinal 50-325-40 mg Capsule] 1 cap PO BID PRN [History] Ferrous Sulfate [Iron] 325 mg PO DAILY 12/06/16 [History] Metformin HCl [Glucophage Xr] 750 mg PO DAILY 12/06/16 [History] Oxycodone HCl 15 mg PO Q6H PRN 12/06/16 [History] SUMAtriptan Succinate [Imitrex] 100 mg PO DAILY PRN 12/06/16 [History] Tizanidine HCl 4 mg PO TID PRN 12/06/16 [History] Allergies Sulfa (Sulfonamide Antibiotics) Allergy (Intermediate, Verified 01/09/15 15:16) Hives cefdinir [From Omnicef] Allergy (Verified 01/30/15 13:44) Difficulty Breathing Ether Allergy (Verified 01/30/15 13:44) Anaphylaxis Penicillins [PCN] Allergy (Verified 01/09/15 15:16) Anaphylaxis insulin detemir [From Levemir] Adverse Reaction (Mild, Verified 12/06/16 15:26) See Comments patient reports painful bumps, does not identify as blister Methadone [From Methadose] Adverse Reaction (Verified 01/09/15 15:18) Drowsy All Systems Review: A 10-system review of systems was performed and is negative for pertinent findings except as documented above in the HPI. Exam Vital Signs, Last 4 Hours Temp Pulse Resp BP Pulse Ox 12/06/16 15:36 98.3 F 102 16 116/82 97 General: Present: No Apparent Distress HEENT: Present: Trachea midline, Pupils equal Neck: Present: Other (No carotid bruits auscultated) Cardiac: Present: Reg Rate and Rhythm, Normal S1 and S2, No Murmur Lungs: Present: Normal Breath Sounds, No Wheeze, Rales, Rhonchi Neuro: Present: Alert and responsive, No focal deficits noted Abdomen: Present: Soft, Non-tender Vascular: Present: Normal capillary refill, Pulse, normal Consult Discharge Plan - Plan Referrals: Reagan Traore MD [Primary Care Provider] -
--- NOTE | 2016-12-06 17:08 | Event Note ---
Date of Encounter: 12/06/16 Time of Encounter: 17:06 61/F PMH : Multiple medical issues like DM, HTN, chronic back pain, hypothyroid admitted with slurring of speech MRI/CT head negative Echo with in normal limit US carotid 60 to 79% seen by Neuro and vascular surg possible home tomorrow
[2016-12-06] MEDS ORDERED: Insulin LISPRO 300 UNITS/3 ML VIAL SQ SCH (21:00)
[2016-12-06] MEDS ORDERED: traZODone 50 MG TABLET PO SCH (21:00)
[2016-12-06] MEDS ORDERED: Loratadine 10 MG TABLET PO SCH (21:00)
[2016-12-07] MEDS: *HR* OxyCODONE Immed Rel 15 MG TABLET PO PRN ×2 (03:43→10:51)
[2016-12-07 04:01] LABS: Bilirubin,Urine Negative (Negative); Blood,Urine Negative (Negative); Clarity,Urine Clear (Clear); Color,Urine Yellow (Yellow); Glucose,Urine (UA) Normal (Normal); Ketones,Urine Negative (Negative); Leukocyte Esterase,Urine Negative (Negative); Nitrite,Urine Negative (Negative); PH,Urine 6.5 pH Units (5.0-8.0); Protein,Urine Negative (Neg-Trace); Specific Gravity,Urine 1.012 (1.010-1.025); Urobilinogen,Urine Normal (Normal)
[2016-12-07] MEDS: Insulin LISPRO 300 UNITS/3 ML VIAL SQ SCH ×4 (08:20→12:40)
[2016-12-07] MEDS: Cholecalciferol (D-3) 1,000 UNIT TABLET PO SCH (08:22)
[2016-12-07] MEDS: ALPRAZolam 0.5 MG TABLET PO SCH (08:22)
[2016-12-07] MEDS: Pregabalin 75 MG CAPSULE PO SCH (08:22)
[2016-12-07 08:46] LABS: Basophils # 0.1 K/mcL (0.0-0.2); Basophils % 0.5 %; Eosinophils # 0.1 K/mcL (0.0-0.6); Eosinophils % 0.4 %; Hematocrit 41.8 % (35.3-44.9); Hemoglobin 13.4 g/dL (11.5-15.4); Immature Granulocytes % 0.3 % (0-4); Lymphocytes # 3.5 K/mcL (0.6-4.6); Lymphocytes % 30.3 %; Mean Corpuscular HGB Conc 32.1 g/dL (31.6-35.5); Mean Corpuscular Hemoglobin 27.9 pg (28.0-33.3); Mean Corpuscular Volume 87.1 fL (83.0-100.0); Mean Platelet Volume 9.9 fL (9.4-12.4); Monocytes # 0.7 K/mcL (0.0-1.3); Neutrophils # 7.2 K/mcL (1.6-8.9); Platelet Count 277 K/mcL (140-400); Red Cell Distribution Width 15.2 % (11.5-14.5); Segmented Neutrophils % 62.5 %
[2016-12-07 08:57] LABS: Alanine Aminotransferase 10 Units/L (0-55); Albumin 3.2 g/dL (3.5-5.0); Albumin/Globulin Ratio 0.8 (1.1-2.2); Alkaline Phosphatase 90 Units/L (38-126); Aspartate Amino Transferase 12 Units/L (5-34); BUN/Creatinine Ratio 12 (6-26); Bilirubin,Total 0.4 mg/dL (0.2-1.2); Blood Urea Nitrogen 11 mg/dL (7-20); Calcium 9.3 mg/dL (8.6-10.8); Carbon Dioxide 29 mEq/L (19-29); Chloride 105 mEq/L (98-109); Glucose 122 mg/dL (70-99); Osmolality,Calculated 293 (280-300); Potassium 4.3 mEq/L (3.5-4.5); Sodium 141 mEq/L (136-145); Total Protein 7.2 g/dL (6.0-8.3); eGFR For African Americans > 60 (> 60); eGFR For Non-African Americans 60 (> 60)
[2016-12-07] MEDS ORDERED: amLODIPine 5 MG TABLET PO SCH (09:00)
[2016-12-07] MEDS ORDERED: *HR* SitaGLIPtin 100 MG TABLET PO SCH (09:00)
[2016-12-07] MEDS ORDERED: Aspirin Enteric Coated 81 MG Tablet PO SCH (09:00)
[2016-12-07] MEDS ORDERED: Lisinopril 20 MG TABLET PO SCH (09:00)
[2016-12-07] MEDS ORDERED: Nystatin POWDER 30 GM BOTTLE TP SCH (10:48)
--- NOTE | 2016-12-07 10:51 | Discharge Summary ---
Date of Encounter: 12/07/16 Time of Encounter: 10:48 - Discharge Diagnosis (1) TIA (transient ischemic attack) Priority: Primary Status: Acute Qualifiers: Transient cerebral ischemia type: unspecified Qualified Code(s): G45.9 - Transient cerebral ischemic attack, unspecified (2) Diabetes mellitus Priority: Secondary Status: Chronic Qualifiers: Diabetes mellitus type: type 2 Diabetes mellitus complication status: with unspecified complications Diabetes mellitus feeder switchboard operator insulin use: with feeder switchboard operator use Qualified Code(s): E11.8 - Type 2 diabetes mellitus with unspecified complications; Z79.4 - alf (current) use of insulin (3) Hypothyroidism Priority: Secondary Status: Chronic Qualifiers: Hypothyroidism type: unspecified Qualified Code(s): E03.9 - Hypothyroidism , unspecified (4) Hypertension Priority: Secondary Status: Chronic Qualifiers: Hypertension type: essential hypertension Qualified Code(s): I10 - Essential (primary) hypertension (5) Bilateral carotid artery stenosis without cerebral infarction Priority: Secondary Status: Acute - Discharge Medications Home Medications: ALPRAZolam [Xanax 0.5 MG Tablet] 0.5 mg PO TID 01/30/15 [History] Amitriptyline [Elavil] 50 mg PO HS 01/30/15 [History] Aspirin [Adult Low Dose Aspirin EC] 81 mg PO DAILY 01/30/15 [History] Atorvastatin Calcium [Lipitor] 40 mg PO DAILY 01/30/15 [History] Furosemide [Lasix] 20 mg PO DAILY PRN 01/30/15 [History] Levothyroxine [Synthroid] 275 mcg PO DAILY 01/30/15 [History] Lisinopril [Zestril] 20 mg PO DAILY 01/30/15 [History] Loratadine [Claritin] 10 mg PO HS 01/30/15 [History] Potassium Chloride [K-Tab ER] 20 meq PO DAILY PRN 01/30/15 [History] Pregabalin [Lyrica] 75 mg PO TID 01/30/15 [History] Trazodone HCl 200 mg PO HS 01/30/15 [History] Venlafaxine [Effexor] 75 mg PO BID 01/30/15 [History] Cholecalciferol (Vitamin D3) [Vitamin D3] 50,000 unit PO QWEEK 07/08/15 [History ] Insulin ASPART [NovoLOG] 9 unit SQ TIDWM 07/08/15 [History] Insulin Glargine,Hum.rec.anlog [Lantus Solostar] 70 unit SQ BID 07/08/15 [ History] SitaGLIPtin [Januvia] 100 mg PO DAILY 07/08/15 [History] amLODIPine [Norvasc] 5 mg PO DAILY 04/22/16 [History] Butalbital/Aspirin/Caffeine [Fiorinal 50-325-40 mg Capsule] 1 cap PO BID PRN [History] Ferrous Sulfate [Iron] 325 mg PO DAILY 12/06/16 [History] Metformin HCl [Glucophage Xr] 750 mg PO DAILY 12/06/16 [History] Oxycodone HCl 15 mg PO Q6H PRN 12/06/16 [History] SUMAtriptan Succinate [Imitrex] 100 mg PO DAILY PRN 12/06/16 [History] Tizanidine HCl 4 mg PO TID PRN 12/06/16 [History] Allergies/Adverse Reactions: Allergies Sulfa (Sulfonamide Antibiotics) Allergy (Intermediate, Verified 01/09/15 15:16) Hives cefdinir [From Omnicef] Allergy (Verified 01/30/15 13:44) Difficulty Breathing Ether Allergy (Verified 01/30/15 13:44) Anaphylaxis Penicillins [PCN] Allergy (Verified 01/09/15 15:16) Anaphylaxis insulin detemir [From Levemir] Adverse Reaction (Mild, Verified 12/06/16 15:26) See Comments patient reports painful bumps, does not identify as blister Methadone [From Methadose] Adverse Reaction (Verified 01/09/15 15:18) Drowsy Procedures/tests Complete & Pending: Procedures Performed prior 72 hours Category Date Time Status MR head/brain wo con [MR] Routine MRI 12/06/16 04:22 Completed EV carotid duplex imaging BI Routine Y 12/06/16 04:22 Completed EV echocardiogram w enhance Routine Y 12/06/16 04:22 Completed Date of admission: 12/06/16 02:18 Primary care physician: Reagan Traore MD Consults: 12/06/16 04:22 Consult to Speech Therapy [CONS] Routine Comment: Evaluate, develop and implement POC Reason for Consult: Slurred speech - to exclude TIA/CVA Call Completed: No 12/06/16 12:51 Consult to Neurology [CONS] Routine Consulting Provider: [facility] Reason for Consult: ?TIA/CVA Call Completed: Yes 12/06/16 15:51 Consult to Physician [CONS] Routine Consulting Provider: Javier Valle Reason for Consult: Bilateral Carotid disease 60 to 79% in patient with TIA Call Completed: Yes Discharging clinician: Saeid Garcia - Patient Status Disposition: Home, Self-Care Condition: Fair Functional capacity at discharge: uses cane/walker Overall status at discharge: patient is progressing back to baseline - Discharge Instructions Follow Up With: Reagan Traore MD [Primary Care Provider] - - Diet and Activity Activity: increase activity as tolerated Diet: diabetic diet Interval History: Ms. Harris is a 61 year old female With h/o diabetes, hypothyroidism, CAD, hypertension, chronic back pain She presented to the ER with feeling lethargic her family was concerned about hypoglycemia and fed her. She was noted to have slurred speech and hence brought to the emergency department. Pt reports that her grand-daughter was concerned about slurred speech, but pt is not sure. She denies difficulty swallowing or choking. She denies facial weakness, blurry vision. She has 3 day h/o frontal headache. She denies weakness of the extremities (she has long h/o numbness of the right leg below the knee, secondary to back surgery). Chest pain, shortness of breath, nausea, vomiting, fever, chills, abdominal pain, dysuria, hematuria, change in bowel habits. She was evaluated in the emergency department and CT head reported No acute intracranial abnormality. NIHSS 1. Pt was outside window for thrombolysis (11.5 hours prior to presentation), hence ER physician did not consult neurologist. He is admitted to the hospitalist service for further management. Hospital course: Patient was hospitalized. CT scan of the head: Negative for any acute ischemic event/no hemorrhage noted. MRI scan of the head: No acute infarct. 2-D echo: EF 60-65%, no valvular abnormality, no regional wall motion abnormality. Ultrasound carotids: 60-79% obstruction bilaterally. Neurologic consult: Recommended aspirin/statin, no further treatment added Vascular surgery consult: Aggressive management of risk factor modification, no surgical intervention at this point, close outpatient follow-up I discussed with the patient,above diagnosis at length. Patient's family was at bedside. Plan: Patient can go home today. She will follow-up with PCP in 1-2 weeks. I have informed personally to her PCP Dr. Marroquin regarding hospitalization/ admission. She will follow up with specialist as recommended. At the time of discharge patient does not have any questions, concerns, update or recommendations - Time Spent with Patient Total time spent providing and/or coordinating discharge services: - Constitutional Vitals: Temp Pulse Resp BP Pulse Ox 98.2 F 64 16 115/52 89 12/07/16 06:31 12/07/16 06:31 12/07/16 06:31 12/07/16 06:12/07/16 08:00 General appearance: Present: A&O X 3, pleasant, no acute distress, answers questions appropriately - Head Head exam: Present: atraumatic, normocephalic - Eye Eye exam: Present: PERRL, conjuntiva pink, sclera anicteric Pupils: Present: PERRL - Neck Neck exam general surgery: Present: supple, trachea midline. Absent: lymphadenopathy - Respiratory Respiratory exam: Present: CTAB. Absent: accessory muscle use, rales, rhonchi, wheezes - Cardiovascular Cardiovascular exam: Present: RRR, +S1, +S2. Absent: diastolic murmur, gallop, rubs, systolic murmur - GI/Abdominal GI/Abdominal exam: Present: normal bowel sounds, soft, no peritoneal signs. Absent: distended, tenderness - Extremities Exam Extremities exam: Present: warm, radial pulses palpable and symetrical. Absent : calf tenderness, cyanotic, pedal edema - Neurological Exam Neurological exam: Present: CN II-XII intact, oriented X3, no focal deficits. Absent: pronater drift, facial droop, speech deficit - Skin Skin exam: Present: dry, intact
[2016-12-07 11:11] VITALS: BP 119/64
== END 2016-12-07 12:55 | disposition home or self-care (01) ==
LOC: EMEROO 01:03 → 2NENU 01:03
PROVIDERS: ADMIT Internal Medicine; ATTEND Internal Medicine

== ENCOUNTER 2017-12-20 16:24 | Inpatient (IN) ==
--- NOTE | 2017-12-20 16:49 | Emergency Department Note ---
Disposition Clinical Impression: Cellulitis of left lower extremity Disposition: Admitted As Inpatient Referrals: Reagan Traore MD [Primary Care Provider] - General Adult HPI - General Chief complaint: ED Extremity Problem,Nontraumatic Stated complaint: cellulitis Time Seen by Provider: 12/20/17 16:35 - History of Present Illness Pain Scale: 8 - Related Data Home Medications Medication Instructions Recorded Confirmed ALPRAZolam [Xanax 0.5 MG Tablet] 0.5 mg PO TID 01/30/15 12/20/17 Amitriptyline [Elavil] 50 mg PO HS 01/30/15 12/20/17 Aspirin [Adult Low Dose Aspirin EC] 81 mg PO DAILY 01/30/15 12/20/17 Atorvastatin Calcium [Lipitor] 40 mg PO DAILY 01/30/15 12/20/17 Furosemide [Lasix] 20 mg PO DAILY PRN 01/30/15 12/20/17 Levothyroxine [Synthroid] 275 mcg PO DAILY 01/30/15 12/20/17 Lisinopril [Zestril] 20 mg PO DAILY 01/30/15 12/20/17 Loratadine [Claritin] 10 mg PO HS 01/30/15 12/20/17 Potassium Chloride [K-Tab ER] 20 meq PO DAILY PRN 01/30/15 12/20/17 Pregabalin [Lyrica] 75 mg PO TID 01/30/15 12/20/17 Trazodone HCl 200 mg PO HS 01/30/15 12/20/17 Venlafaxine [Effexor] 75 mg PO BID 01/30/15 12/20/17 Cholecalciferol (Vitamin D3) 50,000 unit PO QWEEK 07/08/15 12/20/17 [Vitamin D3] Insulin ASPART [NovoLOG] 9 unit SQ TIDWM 07/08/15 12/20/17 Insulin Glargine,Hum.rec.anlog 70 unit SQ BID 07/08/15 12/20/17 [Lantus Solostar] SitaGLIPtin [Januvia] 100 mg PO DAILY 07/08/15 12/20/17 amLODIPine [Norvasc] 5 mg PO DAILY 04/22/16 12/20/17 Butalbital/Aspirin/Caffeine 1 cap PO BID PRN 12/06/16 12/20/17 [Fiorinal 50-325-40 mg Capsule] Ferrous Sulfate [Iron] 325 mg PO DAILY 12/06/16 12/20/17 Metformin HCl [Glucophage Xr] 750 mg PO DAILY 12/06/16 12/20/17 Oxycodone HCl 15 mg PO Q6H PRN 12/06/16 12/20/17 SUMAtriptan Succinate [Imitrex] 100 mg PO DAILY PRN 12/06/16 12/20/17 Tizanidine HCl 4 mg PO TID PRN 12/06/16 12/20/17 Previous Rx's Medication Instructions Recorded Ciprofloxacin HCl [Cipro] 500 mg PO BID #20 tablet 12/13/17 Clindamycin HCl 300 mg PO TID #30 capsule 12/13/17 Allergies Allergy/AdvReac Type Severity Reaction Status Date / Time Sulfa (Sulfonamide Allergy Intermediate Hives Verified 12/20/17 16:35 Antibiotics) cefdinir [From Omnicef] Allergy Difficulty Verified 12/20/17 16:35 Breathing Ether Allergy Anaphylaxis Verified 12/20/17 16:35 Penicillins [PCN] Allergy Anaphylaxis Verified 12/20/17 16:35 insulin detemir AdvReac Mild See Verified 12/20/17 16:35 [From Levemir] Comments Methadone [From Methadose] AdvReac Drowsy Verified 12/20/17 16:35 Past Medical History - Past Medical History Medical history: Reports: non-contributory Surgical history: Reports: herniorrhaphy, hysterectomy, orthopedic, other ( Bilateral carpal tunnel, partial toe amputation), ZANDER/BSO, other (Venous ablation) Psychiatric history: Reports: anxiety, depression, panic disorder QUILL CLEANER history: Reports: no QUILL CLEANER history - Social History Smoking Status: Current every day smoker Smokeless Tobacco Status: No Alcohol use: Reports: none Drug use: Reports: unknown Course Vital Signs Temperature 97.9 F 12/20/17 16:30 Pulse Rate 92 12/20/17 16:30 Respiratory Rate 16 12/20/17 16:30 Blood Pressure 84/56 12/20/17 16:30 O2 Sat by Pulse Oximetry 92 12/20/17 16:30 Temperature 97.9 F 12/20/17 16:30 Pulse Rate 92 12/20/17 16:30 Respiratory Rate 16 12/20/17 16:30 Blood Pressure 84/56 12/20/17 16:30 O2 Sat by Pulse Oximetry 92 12/20/17 16:30 Oxygen Delivery Oxygen Delivery Room Air Attestation Statement - Attestation Attestation: I examined this patient and my medical decision-making was reviewed with the Resident Physician. I agree with the documented findings, disposition and treatment plan as described except to the extent set forth below. 62-year-old female presents emergency room for left lower extremity cellulitis. Patient appears as though she has peripheral vascular disease which internus R2 have increased probability of cellulitis. She has some ulcers on the medial aspect of the left lower extremity. These appear to have become infected causing the cellulitis for the past 3 weeks. She has been on doxycycline, Cipro , and clindamycin. We will try Vanco now. admit. labs, cultures.
[2017-12-20] MEDS ORDERED: 0.9 % Sodium Chloride 1,000 ML IVC ONE (17:03)
--- NOTE | 2017-12-20 17:03 | Emergency Department Note ---
Disposition Clinical Impression: Cellulitis of left lower extremity Disposition: Admitted As Inpatient Referrals: Reagan Traore MD [Partnered Physician] - Forms: ED Satisfaction Letter General Adult HPI - General Chief complaint: ED Extremity Problem,Nontraumatic Stated complaint: cellulitis Time Seen by Provider: 12/20/17 16:35 Source: patient Limitations: no limitations Nursing Notes Reviewed: Yes Vital Signs Reviewed: Yes - History of Present Illness HPI Narrative: Three-week history of nonhealing cellulitis to left lower extremity. Low-grade fevers at home. No other complaints. Does have pain in this area to discharge this area as well. Pain Scale: 8 - Related Data Home Medications Medication Instructions Recorded Confirmed Amitriptyline [Elavil] 50 mg PO HS 01/30/15 12/20/17 Atorvastatin Calcium [Lipitor] 40 mg PO DAILY 01/30/15 12/20/17 Furosemide [Lasix] 20 mg PO DAILY PRN 01/30/15 12/20/17 Lisinopril [Zestril] 20 mg PO DAILY 01/30/15 12/20/17 Loratadine [Claritin] 10 mg PO HS 01/30/15 12/20/17 Venlafaxine [Effexor] 75 mg PO BID 01/30/15 12/20/17 Insulin ASPART [NovoLOG] 9 unit SQ TIDWM 07/08/15 12/20/17 Insulin Glargine,Hum.rec.anlog 70 unit SQ BID 07/08/15 12/20/17 [Lantus Solostar] SitaGLIPtin [Januvia] 100 mg PO DAILY 07/08/15 12/20/17 amLODIPine [Norvasc] 5 mg PO DAILY 04/22/16 12/20/17 Butalbital/Aspirin/Caffeine 1 cap PO BID PRN 12/06/16 12/20/17 [Fiorinal 50-325-40 mg Capsule] Ferrous Sulfate [Iron] 325 mg PO DAILY 12/06/16 12/20/17 Metformin HCl [Glucophage Xr] 750 mg PO DAILY 12/06/16 12/20/17 Oxycodone HCl 15 mg PO Q6H PRN 12/06/16 12/20/17 SUMAtriptan Succinate [Imitrex] 100 mg PO DAILY PRN 12/06/16 12/20/17 Aspirin [Lo-Dose Aspirin EC] 81 mg PO DAILY 12/20/17 12/20/17 Cholecalciferol (Vitamin D3) 50,000 unit PO SA 12/20/17 12/20/17 [Vitamin D] Cyclobenzaprine [Flexeril] 10 mg PO TID PRN 12/20/17 12/20/17 Levothyroxine Sodium [Levo-T] 200 mcg PO DAILY 12/20/17 12/20/17 Levothyroxine [Synthroid] 75 mcg PO 0630 12/20/17 12/20/17 Potassium Chloride [K-Tab ER] 10 meq PO DAILY PRN 12/20/17 12/20/17 Pregabalin [Lyrica] 100 mg PO TID 12/20/17 12/20/17 Trazodone HCl 200 mg PO HS 12/20/17 12/20/17 Previous Rx's Medication Instructions Recorded Ciprofloxacin HCl [Cipro] 500 mg PO BID #20 tablet 12/13/17 Clindamycin HCl 300 mg PO TID #30 capsule 12/13/17 Allergies Allergy/AdvReac Type Severity Reaction Status Date / Time Sulfa (Sulfonamide Allergy Intermediate Hives Verified 12/20/17 17:13 Antibiotics) cefdinir [From Omnicef] Allergy Difficulty Verified 12/20/17 17:13 Breathing Ether Allergy Anaphylaxis Verified 12/20/17 17:13 Penicillins [PCN] Allergy Anaphylaxis Verified 12/20/17 17:13 insulin detemir AdvReac Mild See Verified 12/20/17 17:13 [From Levemir] Comments Methadone [From Methadose] AdvReac Drowsy Verified 12/20/17 17:13 All systems ED: reviewed and negative except as stated. Constitutional: Reports: fever (Patient states low-grade. Not greater than 100. ). Denies: chills Cardiovascular: Denies: chest pain, palpitations, syncope Respiratory: Denies: cough, dyspnea Gastrointestinal: Denies: abdominal pain, nausea, vomiting, diarrhea Musculoskeletal: Reports: other (Left lower extremity pain.). Denies: back pain , neck pain Integumentary: Reports: lesions (Left lower extremity erythema and purulent discharge.) Past Medical History - Past Medical History Attestation: Yes The following information was validated with the patient. Source: patient Medical history: Reports: non-contributory Surgical history: Reports: herniorrhaphy, hysterectomy, orthopedic, other ( Bilateral carpal tunnel, partial toe amputation), ZANDER/BSO, other (Venous ablation) Psychiatric history: Reports: anxiety, depression, panic disorder HOME COORDINATOR history: Reports: no HOME COORDINATOR history - Social History Smoking Status: Current every day smoker Smokeless Tobacco Status: No Alcohol use: Reports: none Drug use: Reports: unknown Physical Exam - General Limitations: no limitations General appearance: alert, in no apparent distress - Head Head exam: atraumatic, normocephalic, normal inspection - Eye Eye exam: Present: normal appearance, PERRL, EOMI - ENT ENT exam: normal exam, normal oropharynx, mucous membranes moist - Neck Neck exam: Present: normal inspection, full ROM, trachea midline - Chest Chest inspection: Present: normal inspection, symmetric chest wall rise - Respiratory Respiratory exam: Present: normal lung sounds bilaterally. Absent: respiratory distress, accessory muscle use - Cardiovascular Cardiovascular exam: Present: regular rate, normal rhythm, normal heart sounds - Expanded Upper Extremity Exam Shoulder exam: Present: normal inspection, full ROM Arm exam: Present: normal inspection, full ROM Elbow exam: Present: normal inspection, full ROM Forearm/Wrist exam: Present: normal inspection, full ROM Hand exam: Present: normal inspection, full ROM Vascular exam: Normal: capillary refill, radial pulse - Expanded Lower Extremity Exam Hip/Pelvis exam: Present: normal inspection, full ROM Upper leg exam: Present: normal inspection, full ROM Knee exam: Present: normal inspection, full ROM Lower leg exam: Present: other (Cellulitic area with an ulcerated lesion to the left lateral lower extremity. Skin changes consistent with peripheral artery disease.) Ankle exam: Present: normal inspection, full ROM Foot/toe exam: Present: normal inspection, full ROM Neurovascular/Tendon exam: Absent: motor deficit, sensory deficit, tendon deficit - Neurological Exam Neurological exam: Present: alert, oriented X3 - Psychiatric Psychiatric exam: Present: normal affect, normal mood - Skin Skin exam: Present: warm, dry - Expanded Skin Exam 1 - Cellulitis. Central ulcerated lesion with a purulent discharge. Course Course Narrative: Female patient presenting to emergency complaining of a left lower extremity cellulitis. Patient states she has been on antibiotics for approximately 3 weeks. She has been on Cipro Doxy and clindamycin. There is been no resolution in the area is getting larger she states. She reports low-grade fevers nothing greater than 100. Patient is well-appearing. She has no other complaints at this time. Patient is a smoker. We discussed smoking cessation. She states that she may stop smoking. She denies any shortness of breath or chest pain. She denies any coughs. She reports that she did have a nonhealing wound to her right lower extremity that was positive for MRSA and had to be admitted to the hospital. She states that that has since resolved and is better at this time. She denies any trauma to this left lower extremity. He does appear to be ulcerated. History of peripheral artery disease. We will get basic lab work on patient as well as blood cultures. We will start patient on vancomycin. She is allergic to penicillin and states that this is an allergy where she stops breathing. We will be admitting the patient to the hospital for failed outpatient therapy of her cellulitis. - Consultations Consultation #1: Hospitalist accepted Pt in stable condition. Time: 17:15 Vital Signs Temperature 97.9 F 12/20/17 16:30 Pulse Rate 92 12/20/17 16:30 Respiratory Rate 16 12/20/17 16:30 Blood Pressure 84/56 12/20/17 16:30 O2 Sat by Pulse Oximetry 92 12/20/17 16:30 Temperature 97.9 F 12/20/17 16:43 Pulse Rate 92 12/20/17 16:43 Respiratory Rate 16 12/20/17 16:43 Blood Pressure 84/56 12/20/17 16:43 O2 Sat by Pulse Oximetry 92 12/20/17 16:43 Oxygen Delivery Oxygen Delivery Room Air Medical Decision Making - Medical Records Medical records reviewed: Yes I reviewed the patient's medical records. - Lab Data Lab results reviewed: Yes I reviewed the patient's lab results. Result diagrams: 12/20/17 16:47 Lab Results 12/20/17 Range/Units 16:47 WBC 13.0 H (4.3-11.1) K/mcL RBC 4.61 (3.82-4.97) M/mcL Hgb 13.1 (11.5-15.4) g/dL Hct 40.0 (35.3-44.9) % MCV 86.8 (83.0-100.0) fL MCH 28.4 (28.0-33.3) pg MCHC 32.8 (31.6-35.5) g/dL RDW 16.5 H (11.5-14.5) % Plt Count 309 (140-400) K/mcL MPV 10.1 (9.4-12.4) fL Immature Gran % 0.7 (0-4) % Seg Neutrophils % 68.7 % Lymphocytes % 22.6 % Monocytes % 6.9 % Eosinophils % 0.6 % Basophils % 0.5 % Neutrophils # 8.9 (1.6-8.9) K/mcL Lymphocytes # 2.9 (0.6-4.6) K/mcL Monocytes # 0.9 (0.0-1.3) K/mcL Eosinophils # 0.1 (0.0-0.6) K/mcL Basophils # 0.1 (0.0-0.2) K/mcL Immature Plt Fraction 2.7 (1.1-6.1) %
[2017-12-20 17:18] LABS: Basophils # 0.1 K/mcL (0.0-0.2); Basophils % 0.5 %; Eosinophils # 0.1 K/mcL (0.0-0.6); Eosinophils % 0.6 %; Hemoglobin 13.1 g/dL (11.5-15.4); Immature Granulocytes % 0.7 % (0-4); Immature Platelets 2.7 % (1.1-6.1); Lymphocytes # 2.9 K/mcL (0.6-4.6); Lymphocytes % 22.6 %; Mean Corpuscular HGB Conc 32.8 g/dL (31.6-35.5); Mean Corpuscular Hemoglobin 28.4 pg (28.0-33.3); Mean Corpuscular Volume 86.8 fL (83.0-100.0); Mean Platelet Volume 10.1 fL (9.4-12.4); Monocytes # 0.9 K/mcL (0.0-1.3); Monocytes % 6.9 %; Neutrophils # 8.9 K/mcL (1.6-8.9); Platelet Count 309 K/mcL (140-400); Red Blood Count 4.61 M/mcL (3.82-4.97); Red Cell Distribution Width 16.5 % (11.5-14.5); Segmented Neutrophils % 68.7 %
[2017-12-20 17:31] LABS: Calcium 9.5 mg/dL (8.6-10.3); Potassium 3.9 mEq/L (3.5-5.1)
[2017-12-20] MEDS: Nicotine 21 MG PATCH.TD24 TD SCH (17:39)
[2017-12-20] MEDS ORDERED: Naloxone 0.4 MG/ML INJ IVP PRN (17:43)
[2017-12-20] MEDS ORDERED: Dextrose Gel 15 GM/37.5 ML TUBE PO PRN ×2 (17:44)
[2017-12-20] MEDS ORDERED: *HR* Dextrose 50 % in Water (Syg) 50 ML SYRINGE IVP PRN (17:44)
[2017-12-20] MEDS ORDERED: D5% in Water 1,000 ML IVC PRN (17:44)
[2017-12-20] MEDS ORDERED: Acetaminophen/Butalbital/CaffeineTABLET PO PRN (17:45)
[2017-12-20] MEDS ORDERED: *HR* OxyCODONE Immed Rel 15 MG TABLET PO PRN (17:45)
[2017-12-20] MEDS ORDERED: Acetaminophen 325 MG TABLET PO PRN (17:50)
--- NOTE | 2017-12-20 17:51 | Internal Med History&Physical ---
Date of Encounter: 12/20/17 Time of Encounter: 18:28 Internal Medicine - H&P: HPI Chief complaint: My cellulitis wont go away Admitted From: Home Plans for Post Hospital Care: Home History of present illness: Ms. Harris is a 62 year old female with morbid obesity, diabetes mellitus insulin -dependent, chronic venostasis ulcers, hypertension, hyperlipidemia, hypothyroidism She presented to the ER complaining of worsening left lower extremity swelling and pain. This is her third presentation to the ER at this month. She has received ciprofloxacin, clindamycin and doxycycline over the past 3 weeks for treatment of left lower extremity cellulitis. She states this has not helped her symptoms. She denies fever or chills, she does endorse lethargy and more weakness. She denies urinary symptoms she denies changes in bowel habit. She has no nausea or vomiting. She denies chest pain or shortness of breath. Patient has multiple medication allergies, including penicillins, cephalosporins , and sulfa drugs. The ER team started her on vancomycin. Evaluation in the ER, patient was hypotensive on arrival but improved with IV fluids, she is currently hemodynamically stable. Workup in the ER revealed leukocytosis with left shift, acute kidney injury. She will be admitted inpatient for management of severe sepsis with tachycardia kidney injury, secondary to cellulitis with failed outpatient therapy. Past Med Surg Social Fam HX - Past Medical History Medical history: COPD, diabetes, hyperlipidemia, hypertension, venous stasis Additional medical history: Leukemia Psychiatric history: anxiety, depression, panic disorder - Past Surgical History Surgical History: herniorrhaphy, hysterectomy, orthopedic, other (Bilateral carpal tunnel, partial toe amputation), ZANDER/BSO, other (Venous ablation) Additional surgical history: BILATERAL CARPAL TUNNEL RELEASE X 2. VENOUS ABLATION. RIGHT FOOT 2ND DIGIT PARTIAL AMPUTATION - Social History Smoking Status: Current every day smoker Smokeless Tobacco Status: No Alcohol use: none Drug use: unknown - Family History Father Living Status: Hx Family Cardiac Disorders: Yes (HTN) Hx Family Neuromuscular Disorders: Yes Internal Medicine - H&P: Meds Amitriptyline [Elavil] 50 mg PO HS 01/30/15 [History] Atorvastatin Calcium [Lipitor] 40 mg PO HS 01/30/15 [History] Furosemide [Lasix] 20 mg PO DAILY PRN 01/30/15 [History] Lisinopril [Zestril] 20 mg PO DAILY 01/30/15 [History] Loratadine [Claritin] 10 mg PO HS 01/30/15 [History] Venlafaxine [Effexor] 75 mg PO TID 01/30/15 [History] Insulin ASPART [NovoLOG] 12 unit SQ TIDWM 07/08/15 [History] Insulin Glargine,Hum.rec.anlog [Lantus Solostar] 75 unit SQ BID 07/08/15 [ History] SitaGLIPtin [Januvia] 100 mg PO DAILY 07/08/15 [History] amLODIPine [Norvasc] 5 mg PO DAILY 04/22/16 [History] Butalbital/Aspirin/Caffeine [Fiorinal 50-325-40 mg Capsule] 1 cap PO BID PRN [History] Ferrous Sulfate [Iron] 325 mg PO DAILY 12/06/16 [History] Metformin HCl [Glucophage Xr] 750 mg PO HS 12/06/16 [History] Oxycodone HCl 15 mg PO Q6H PRN 12/06/16 [History] SUMAtriptan Succinate [Imitrex] 100 mg PO DAILY PRN 12/06/16 [History] Ciprofloxacin HCl [Cipro] 500 mg PO BID #20 tablet 12/13/17 [Rx] Clindamycin HCl 300 mg PO TID #30 capsule 12/13/17 [Rx] Aspirin [Lo-Dose Aspirin EC] 81 mg PO DAILY 12/20/17 [History] Cholecalciferol (Vitamin D3) [Vitamin D] 50,000 unit PO SA 12/20/17 [History] Cyclobenzaprine [Flexeril] 10 mg PO TID PRN 12/20/17 [History] Levothyroxine Sodium [Levo-T] 200 mcg PO DAILY 12/20/17 [History] Levothyroxine [Synthroid] 75 mcg PO 0630 12/20/17 [History] Potassium Chloride [K-Tab ER] 10 meq PO DAILY PRN 12/20/17 [History] Pregabalin [Lyrica] 100 mg PO TID 12/20/17 [History] Trazodone HCl 200 mg PO HS 12/20/17 [History] 3 Allergy/AdvReac Type Severity Reaction Status Date / Time Sulfa (Sulfonamide Allergy Intermediate Hives Verified 12/20/17 17:13 Antibiotics) cefdinir [From Omnicef] Allergy Difficulty Verified 12/20/17 17:13 Breathing Ether Allergy Anaphylaxis Verified 12/20/17 17:13 Penicillins [PCN] Allergy Anaphylaxis Verified 12/20/17 17:13 insulin detemir AdvReac Mild See Verified 12/20/17 17:13 [From Levemir] Comments Methadone [From Methadose] AdvReac Drowsy Verified 12/20/17 17:13 All Systems PM: A 10-system review of systems was performed and is negative for pertinent findings except as documented above in the HPI. - Constitutional Constitutional: no chills, no fever(s), no night sweats - EENT Eyes: no change in vision, no discharge, no pain, no photophobia Ears: no ear discharge, no ear pain, no tinnitus Nose, mouth and throat: no dysphagia, no nasal discharge, no neck pain, no sore throat - Cardiovascular Cardiovascular ROS IM: no chest pain, no diaphoresis, no dyspnea, no lightheadedness, no palpitations, no syncope - Respiratory Respiratory: no cough, no dyspnea, no wheezing, no excessive phlegm production - Gastrointestinal Gastrointestinal: no abdominal pain, no diarrhea, no hematemesis, no hematochezia, no melena, no nausea, no vomiting - Genitourinary Genitourinary: no change in urinary stream, no dysuria, no flank pain, no hematuria - Musculoskeletal Musculoskeletal ROS IM: as per HPI - Integumentary Integumentary IM: as per HPI - Neurological Neurological ROS: no confusion, no convulsions, no focal weakness, no numbness, no tingling, no tremor(s) - Hematologic/Lymphatic Hematologic/Lymphatic: no easy bruising - Constitutional Vitals: Temp Pulse Resp BP Pulse Ox 97.9 F 80 16 93/56 92 12/20/17 16:43 12/20/17 17:40 12/20/17 16:43 12/20/17 17:40 12/20/17 16:43 General appearance: Present: disheveled, A&O X 3, morbidly obese, no acute distress - Head Head exam: Present: atraumatic, normocephalic - Eye Eye exam: Present: PERRL, conjuntiva pink, sclera anicteric Pupils: Present: PERRL - Neck Neck exam general surgery: Present: supple, trachea midline. Absent: lymphadenopathy - Respiratory Respiratory exam: Present: CTAB. Absent: accessory muscle use, rales, rhonchi, wheezes - Cardiovascular Cardiovascular exam: Present: RRR, +S1, +S2. Absent: diastolic murmur, gallop, rubs, systolic murmur - GI/Abdominal GI/Abdominal exam: Present: normal bowel sounds, soft, no peritoneal signs. Absent: distended, tenderness - Extremities Exam Extremities exam: Absent: calf tenderness, cyanotic, pedal edema Additional comments: Left lower extremity with redness, swelling, skin break superficial slough. No induration or fluctuance he. Pulses present. Right lower extremity Benny wrap. - Neurological Exam Neurological exam: Present: alert, CN II-XII intact, oriented X3, no focal deficits. Absent: pronater drift, facial droop, speech deficit - Skin Skin exam: Present: dry, intact Internal Med - H&P Results - Labs CBC & Chem 7: 12/20/17 16:47 12/20/17 16:47 Labs: Short CBC 12/20/17 Range/Units 16:47 WBC 13.0 H (4.3-11.1) K/mcL Hgb 13.1 (11.5-15.4) g/dL Hct 40.0 (35.3-44.9) % Plt Count 309 (140-400) K/mcL Neutrophils # 8.9 (1.6-8.9) K/mcL BMP 12/20/17 16:47 Sodium 138 Potassium 3.9 Chloride 102 Carbon Dioxide 28 BUN 23 Creatinine 1.39 H Glucose 133 H Calcium 9.5 - Assessment and plan (1) Severe sepsis Current Visit: Yes Status: Acute Assessment and plan: Patient with left lower extremity cellulitis with failed outpatient therapy She met criteria for severe sepsis on admission with heart rate greater than 90 , leukocytosis with WBC >13,000, left lower extremity cellulitis, Torey, and hypertension. Lactate is pending IVF hydration with 1L saline STAT Continue maintenance with 100cc/hr Blood pressure on presentation 85/96 Blood pressure at time of review 103/56 Continue Vancomycin IV, pharmacy to dose Follow blood cultures (2) TOREY (acute kidney injury) Current Visit: Yes Status: Acute Assessment and plan: Likely prerenal Nonoliguric. Obtain retroperitoneal ultrasound. Monitor intake and output IV fluid hydration Avoid nephrotoxins (3) Cellulitis of left lower limb Current Visit: Yes Status: Acute Assessment and plan: Failed outpatient therapy with ciprofloxacin, doxycycline and clindamycin. Patient with multiple medication allergies including cephalosporins, penicillins and sulfonamides. Started on vancomycin by the emergency room team We will continue the same Pharmacy to dose High-risk medication in the patient already with acute kidney injury. Follow blood cultures Doppler of the left lower extremity to rule out DVT (4) Lymphedema of both lower extremities Current Visit: Yes Status: Chronic Assessment and plan: Continue Benny wrap Elevate feet (5) Chronic back pain Current Visit: Yes Status: Chronic Assessment and plan: Continue home medications Qualifiers: Back pain location: back pain in unspecified location Back pain laterality : unspecified Qualified Code(s): M54.9 - Dorsalgia, unspecified; G89.29 - Other chronic pain (6) Diabetes mellitus Current Visit: Yes Status: Chronic Assessment and plan: Seen on high doses of glargine at home. Report reports allergies to Levemir High dose correction and prandial insulin FS ACHS ADA diet If FS >500, will start on insulin drip Qualifiers: Diabetes mellitus type: type 2 Diabetes mellitus fdc insulin use: with fdc use Diabetes mellitus complication status: with skin complications Diabetes mellitus complication detail: with dermatitis Qualified Code(s): E11.620 - Type 2 diabetes mellitus with diabetic dermatitis; Z79.4 - FPC (current) use of insulin (7) Hypertension Current Visit: Yes Status: Chronic Assessment and plan: Continue home medications. Qualifiers: Hypertension type: essential hypertension Qualified Code(s): I10 - Essential (primary) hypertension (8) Hypothyroidism Current Visit: Yes Status: Chronic Assessment and plan: on 275 mcg of Synthroid Continue same Check TSH with a.m. labs Qualifiers: Hypothyroidism type: unspecified Qualified Code(s): E03.9 - Hypothyroidism , unspecified (9) Tobacco abuse Current Visit: Yes Status: Chronic Assessment and plan: encourage cessation NRT prn - Time Spent With Patient Total time spent is greater than 50% in coordination of care (as documented) at patient's floor/unit and/or counseling patient:
[2017-12-20] MEDS ORDERED: MetroNIDAZOLE 500 MG/100 ML 500 MG/100 ML BAG IVPB SCH (19:00)
[2017-12-20] MEDS: 0.9 % Sodium Chloride 1,000 ML IVC SCH (22:52)
[2017-12-20] MEDS: Loratadine 10 MG TABLET PO SCH (22:53)
[2017-12-20] MEDS: Pregabalin 50 MG CAPSULE PO SCH (22:53)
[2017-12-20] MEDS: traZODone 50 MG TABLET PO SCH (22:53)
[2017-12-20] MEDS: Insulin LISPRO 300 UNITS/3 ML VIAL SQ SCH (23:03)
[2017-12-21 06:33] LABS: Basophils # 0.1 K/mcL (0.0-0.2); Basophils % 0.5 %; Eosinophils # 0.1 K/mcL (0.0-0.6); Eosinophils % 0.7 %; Hematocrit 36.3 % (35.3-44.9); Hemoglobin 11.6 g/dL (11.5-15.4); Immature Granulocytes % 0.5 % (0-4); Lymphocytes # 2.9 K/mcL (0.6-4.6); Lymphocytes % 28.4 %; Mean Corpuscular Volume 87.5 fL (83.0-100.0); Mean Platelet Volume 10.6 fL (9.4-12.4); Monocytes # 0.9 K/mcL (0.0-1.3); Monocytes % 8.8 %; Neutrophils # 6.2 K/mcL (1.6-8.9); Platelet Count 213 K/mcL (140-400); Red Blood Count 4.15 M/mcL (3.82-4.97); Red Cell Distribution Width 16.8 % (11.5-14.5); Segmented Neutrophils % 61.1 %
[2017-12-21 06:53] LABS: Calcium 8.4 mg/dL (8.6-10.3); Potassium 4.3 mEq/L (3.5-5.1)
[2017-12-21 06:57] LABS: Estimated Average Glucose 192 mg/dl; Hemoglobin A1C 8.3 %
[2017-12-21] MEDS: Insulin LISPRO 300 UNITS/3 ML VIAL SQ SCH ×7 (08:00→21:05)
[2017-12-21] MEDS: MetroNIDAZOLE 500 MG/100 ML 500 MG/100 ML BAG IVPB SCH ×2 (08:01→15:30)
[2017-12-21] MEDS: Aspirin Enteric Coated 81 MG Tablet PO SCH (08:02)
[2017-12-21] MEDS: Nicotine 21 MG PATCH.TD24 TD SCH (08:02)
[2017-12-21] MEDS: Pregabalin 50 MG CAPSULE PO SCH ×3 (08:02→20:58)
[2017-12-21] MEDS ORDERED: amLODIPine 5 MG TABLET PO SCH (09:00)
[2017-12-21] MEDS: 0.9 % Sodium Chloride 1,000 ML IVC SCH ×2 (12:59→15:30)
[2017-12-21] MEDS ORDERED: *HR* HYDROcodone/Acet 10/325 mg TABLET PO PRN (13:40)
[2017-12-21] MEDS ORDERED: *HR* HYDROcodone/Acet 5/325 mg TABLET PO PRN (13:40)
--- NOTE | 2017-12-21 13:45 | Internal Med Progress Note ---
Date of Encounter: 12/21/17 Time of Encounter: 12:55 - Assessment and plan (1) Severe sepsis Current Visit: Yes Status: Acute Assessment and plan: Patient with left lower extremity cellulitis with failed outpatient therapy She met criteria for severe sepsis on admission with heart rate greater than 90 , leukocytosis with WBC >13,000, left lower extremity cellulitis, SISI, and hypotension Lactate normal Continue Vancomycin IV, pharmacy to dose. Also on flagyl may need ID consult in view of failure of outpatient therapy and multiple drug allergy fluid boluses as needed for hypotension, hold off norvasc Follow blood cultures (2) Cellulitis of left lower limb Current Visit: Yes Status: Acute Assessment and plan: Failed outpatient therapy with ciprofloxacin, doxycycline and clindamycin. Patient with multiple medication allergies including cephalosporins, penicillins and sulfonamides. abx as above Doppler of the left lower extremity is completed but formal report pending, low suspicion (3) SISI (acute kidney injury) Current Visit: Yes Status: Acute Assessment and plan: was hypotensive on presentation and patient is septic, ATN vs. pre-renal slightly worse today but non-oliguric continue IVF, if worsen tomorrow, will send urine studies Avoid nephrotoxins (4) Lymphedema of both lower extremities Current Visit: Yes Status: Chronic Assessment and plan: Continue Benny wrap, elevate legs will benefit from compression stockings outpatient (5) Diabetes mellitus Current Visit: Yes Status: Chronic Assessment and plan: continue prandial insulin + high dose sliding scale reports allergy to levemir FS ACHS ADA diet Qualifiers: Diabetes mellitus type: type 2 Diabetes mellitus shelter insulin use: with terminal operator use Diabetes mellitus complication status: with skin complications Diabetes mellitus complication detail: with dermatitis Qualified Code(s): E11.620 - Type 2 diabetes mellitus with diabetic dermatitis; Z79.4 - terminal clerk (current) use of insulin (6) Hypertension Current Visit: Yes Status: Chronic Assessment and plan: hold off norvasc in view of hypotension Qualifiers: Hypertension type: essential hypertension Qualified Code(s): I10 - Essential (primary) hypertension (7) Tobacco abuse Current Visit: Yes Status: Chronic Assessment and plan: encourage cessation NRT prn (8) DVT prophylaxis Current Visit: Yes Status: Acute Assessment and plan: sq heparin - Time Spent With Patient Total time spent is greater than 50% in coordination of care (as documented) at patient's floor/unit and/or counseling patient: - Subjective Interval history: complaining of L LE/ankle pain. Denies fever/chills, N/V. - Constitutional Vitals: Temp Pulse Resp BP Pulse Ox 97.4 F L 74 16 95/62 92 12/21/17 11:35 12/21/17 11:35 12/21/17 11:35 12/21/17 11:35 12/21/17 11:35 General appearance: Present: disheveled, A&O X 3, morbidly obese, no acute distress Exam: General: Alert and oriented HEENT:EOM, pupils equal, round, and reactive. Cardiovascular:Normal S1 & S2, no murmurs or gallops. No JVD. Pulse regular. Lungs:Normal breath sounds, no wheezes or crackles. Abdomen:Soft, non-tender, no rigidity. Extremities:Left lower extremity with redness, swelling from ankle to mid trevizo. No induration or fluctuance felt. Pulses present. Right lower extremity Benny wrap. Rest of the physical exam is non-contributory Internal Medicine: Result - Labs CBC & Chem 7: 12/21/17 05:53 12/21/17 05:53 Labs: Short CBC 12/21/17 Range/Units 05:53 WBC 10.1 (4.3-11.1) K/mcL Hgb 11.6 D (11.5-15.4) g/dL Hct 36.3 (35.3-44.9) % Plt Count 213 (140-400) K/mcL Neutrophils # 6.2 (1.6-8.9) K/mcL BMP 12/21/17 05:53 Sodium 137 Potassium 4.3 Chloride 107 Carbon Dioxide 25 BUN 26 H Creatinine 1.55 H Glucose 146 H Calcium 8.4 L Consult Discharge Plan - Plan Referrals: Reagan Traore MD [Primary Care Provider] -
[2017-12-21] MEDS ORDERED: 0.9 % Sodium Chloride 500 ML IVC ONE (13:51)
[2017-12-21] MEDS ORDERED: 0.9 % Sodium Chloride 500 ML IVC PRN (15:30)
[2017-12-21] MEDS: Loratadine 10 MG TABLET PO SCH (20:58)
[2017-12-21] MEDS: *HR* Heparin 5,000 UNIT/ML VIAL SQ SCH (20:58)
[2017-12-21] MEDS: traZODone 50 MG TABLET PO SCH (20:58)
[2017-12-22] MEDS: MetroNIDAZOLE 500 MG/100 ML 500 MG/100 ML BAG IVPB SCH ×3 (02:09→17:30)
[2017-12-22 02:10] LABS: Basophils # 0.1 K/mcL (0.0-0.2); Basophils % 0.5 %; Eosinophils # 0.1 K/mcL (0.0-0.6); Eosinophils % 0.9 %; Hematocrit 37.2 % (35.3-44.9); Hemoglobin 11.7 g/dL (11.5-15.4); Immature Granulocytes % 0.7 % (0-4); Lymphocytes # 2.3 K/mcL (0.6-4.6); Mean Corpuscular HGB Conc 31.5 g/dL (31.6-35.5); Mean Platelet Volume 10.2 fL (9.4-12.4); Monocytes # 0.8 K/mcL (0.0-1.3); Monocytes % 8.2 %; Neutrophils # 5.9 K/mcL (1.6-8.9); Platelet Count 258 K/mcL (140-400); Red Blood Count 4.18 M/mcL (3.82-4.97); Red Cell Distribution Width 16.9 % (11.5-14.5); Segmented Neutrophils % 64.7 %
[2017-12-22 02:22] LABS: Calcium 8.2 mg/dL (8.6-10.3); Potassium 3.9 mEq/L (3.5-5.1)
[2017-12-22] MEDS: 0.9 % Sodium Chloride 1,000 ML IVC SCH ×2 (02:22→17:30)
[2017-12-22] MEDS: *HR* Heparin 5,000 UNIT/ML VIAL SQ SCH ×3 (06:20→22:12)
[2017-12-22] MEDS: Aspirin Enteric Coated 81 MG Tablet PO SCH (08:45)
[2017-12-22] MEDS: Nicotine 21 MG PATCH.TD24 TD SCH (08:45)
[2017-12-22] MEDS: Insulin LISPRO 300 UNITS/3 ML VIAL SQ SCH ×7 (08:45→22:11)
[2017-12-22] MEDS: Pregabalin 50 MG CAPSULE PO SCH ×3 (08:45→22:11)
--- NOTE | 2017-12-22 15:41 | Internal Med Progress Note ---
Date of Encounter: 12/22/17 Time of Encounter: 13:00 - Assessment and plan (1) Severe sepsis Current Visit: Yes Status: Acute Assessment and plan: Patient with left lower extremity cellulitis with failed outpatient therapy She met criteria for severe sepsis on admission with heart rate greater than 90 , leukocytosis with WBC >13,000, left lower extremity cellulitis, SISI, and hypotension Lactate normal Improving on vanc/flagyl, continue required additional 500ml of fluid bolus for hypotension yesterday, improved today. Continue to monitor BP Follow blood cultures (2) Cellulitis of left lower limb Current Visit: Yes Status: Acute Assessment and plan: Failed outpatient therapy with ciprofloxacin, doxycycline and clindamycin. Patient with multiple medication allergies including cephalosporins, penicillins and sulfonamides. Doppler of the lower extremities -ve for DVT abx as above may be able to switch to PO abx tomorrow and discharge (3) SISI (acute kidney injury) Current Visit: Yes Status: Acute Assessment and plan: was hypotensive on presentation and patient is septic, ATN vs. pre-renal initially got worse but improved today. Non-oliguric continue IVF Avoid nephrotoxins (4) Lymphedema of both lower extremities Current Visit: Yes Status: Chronic Assessment and plan: Continue FLACO wrap, elevate legs will benefit from compression stockings outpatient (5) Diabetes mellitus Current Visit: Yes Status: Chronic Assessment and plan: continue prandial insulin + high dose sliding scale reports allergy to levemir FS ACHS ADA diet Qualifiers: Diabetes mellitus type: type 2 Diabetes mellitus fdc insulin use: with fdc use Diabetes mellitus complication status: with skin complications Diabetes mellitus complication detail: with dermatitis Qualified Code(s): E11.620 - Type 2 diabetes mellitus with diabetic dermatitis; Z79.4 - residential (current) use of insulin (6) Hypertension Current Visit: Yes Status: Chronic Assessment and plan: BP stablized today, will continue to hold off norvasc and restart it if elevated Qualifiers: Hypertension type: essential hypertension Qualified Code(s): I10 - Essential (primary) hypertension (7) Tobacco abuse Current Visit: Yes Status: Chronic Assessment and plan: encourage cessation NRT prn (8) DVT prophylaxis Current Visit: Yes Status: Acute Assessment and plan: sq heparin - Time Spent With Patient Total time spent is greater than 50% in coordination of care (as documented) at patient's floor/unit and/or counseling patient: - Subjective Interval history: L LE/ankle pain is improving but still has areas of redness. Denies fever/chills , N/V. - Constitutional Vitals: Temp Pulse Resp BP Pulse Ox 97.5 F L 85 16 144/84 95 12/22/17 12:20 12/22/17 12:20 12/22/17 12:20 12/22/17 12:20 12/22/17 12:20 General appearance: Present: disheveled, A&O X 3, morbidly obese, no acute distress Exam: General: Alert and oriented HEENT:EOM, pupils equal, round, and reactive. Cardiovascular:Normal S1 & S2, no murmurs or gallops. No JVD. Pulse regular. Lungs:Normal breath sounds, no wheezes or crackles. Abdomen:Soft, non-tender, no rigidity. Extremities:Left lower extremity with redness, swelling from ankle to mid trevizo - > appears better than yesterday. No induration or fluctuance felt. Pulses present. Right lower extremity FLACO wrap. Rest of the physical exam is non-contributory Internal Medicine: Result - Labs CBC & Chem 7: 12/22/17 00:40 12/22/17 00:40 Labs: Short CBC 12/22/17 Range/Units 00:40 WBC 9.1 (4.3-11.1) K/mcL Hgb 11.7 (11.5-15.4) g/dL Hct 37.2 (35.3-44.9) % Plt Count 258 (140-400) K/mcL Neutrophils # 5.9 (1.6-8.9) K/mcL BMP 12/22/17 00:40 Sodium 137 Potassium 3.9 Chloride 106 Carbon Dioxide 26 BUN 22 Creatinine 1.31 H Glucose 212 H Calcium 8.2 L Consult Discharge Plan - Plan Referrals: Reagan Traore MD [Primary Care Provider] -
[2017-12-22] MEDS: traZODone 50 MG TABLET PO SCH (22:10)
[2017-12-22] MEDS: Loratadine 10 MG TABLET PO SCH (22:10)
[2017-12-23] MEDS: MetroNIDAZOLE 500 MG/100 ML 500 MG/100 ML BAG IVPB SCH ×2 (00:37→09:38)
[2017-12-23] MEDS: *HR* Heparin 5,000 UNIT/ML VIAL SQ SCH (05:56)
[2017-12-23] MEDS: 0.9 % Sodium Chloride 1,000 ML IVC SCH (06:03)
[2017-12-23 08:11] LABS: Basophils # 0.1 K/mcL (0.0-0.2); Basophils % 0.6 %; Eosinophils # 0.1 K/mcL (0.0-0.6); Eosinophils % 0.8 %; Hematocrit 34.9 % (35.3-44.9); Hemoglobin 11.1 g/dL (11.5-15.4); Immature Granulocytes % 0.3 % (0-4); Lymphocytes # 2.8 K/mcL (0.6-4.6); Lymphocytes % 31.9 %; Mean Corpuscular HGB Conc 31.8 g/dL (31.6-35.5); Mean Corpuscular Volume 87.9 fL (83.0-100.0); Mean Platelet Volume 9.8 fL (9.4-12.4); Monocytes # 0.9 K/mcL (0.0-1.3); Neutrophils # 4.9 K/mcL (1.6-8.9); Platelet Count 230 K/mcL (140-400); Red Blood Count 3.97 M/mcL (3.82-4.97); Red Cell Distribution Width 16.4 % (11.5-14.5); Segmented Neutrophils % 56.4 %
[2017-12-23 08:22] LABS: BUN/Creatinine Ratio 17 (6-26); Blood Urea Nitrogen 15 mg/dL (8-23); Calcium 8.2 mg/dL (8.6-10.3); Carbon Dioxide 23 mEq/L (23-29); Chloride 111 mEq/L (98-107); Glucose 192 mg/dL (70-105); Osmolality,Calculated 294 (280-300); Potassium 4.1 mEq/L (3.5-5.1); Sodium 139 mEq/L (136-145); eGFR For African Americans > 60 (> 60); eGFR For Non-African Americans > 60 (> 60)
--- NOTE | 2017-12-23 08:43 | Internal Med Progress Note ---
Date of Encounter: 12/23/17 Time of Encounter: 08:40 - Assessment and plan (1) Cellulitis of left lower limb Current Visit: Yes Status: Acute Assessment and plan: Failed outpatient therapy with ciprofloxacin, doxycycline and clindamycin. Has home health nursing. Patient with multiple medication allergies including cephalosporins, penicillins and sulfonamides. -Continue IV vancomycin -Doppler of the lower extremities for DVT is negative -Continue antibiotics -Will need to switch to PO antibiotics and can be discharged tomorrow (2) Severe sepsis Current Visit: Yes Status: Resolved Assessment and plan: Patient with left lower extremity cellulitis with failed outpatient therapy She met criteria for severe sepsis on admission with heart rate greater than 90 , leukocytosis with WBC >13,000, left lower extremity cellulitis, SISI, and hypotension -Lactate normal -Blood pressure stable -Taking in oral food and drinking fluids (3) Lymphedema of both lower extremities Current Visit: Yes Status: Chronic Assessment and plan: Edema is chronic and nonpitting, likely due to body habitus and lack of physical activity -Continue FLACO wrap, elevate legs -Echo 1 year ago showed LVEF of 60% with mild diastolic dysfunction -Will benefit from compression stockings outpatient (4) Diabetes mellitus Current Visit: Yes Status: Chronic Assessment and plan: Last A1c 1 month ago was 8.3 -Added Levimir 40 units in the morning, at home on 75 units of Glargine -Sliding scale added as well -Continue ADA diet -reports allergy to levemir Qualifiers: Diabetes mellitus type: type 2 Diabetes mellitus continuous churn buttermaker insulin use: with [facility] use Diabetes mellitus complication status: with skin complications Diabetes mellitus complication detail: with dermatitis Qualified Code(s): E11.620 - Type 2 diabetes mellitus with diabetic dermatitis; Z79.4 - long term care phlebotomist (current) use of insulin (5) Hypertension Current Visit: Yes Status: Chronic Assessment and plan: 154/84 this morning -On norvasc at home but due to chronic leg edema will switch -Will start with home dose of lasix and lisinopril Qualifiers: Hypertension type: essential hypertension Qualified Code(s): I10 - Essential (primary) hypertension (6) SISI (acute kidney injury) Current Visit: Yes Status: Acute Assessment and plan: Was hypotensive on presentation and sepsis at presentation, ATN vs. pre-renal -Creatinine resolved -Was on IV fluids and stopped it today -Continue oral hydration -Avoid nephrotoxins, on vancomycin due to many medication allergies but creatinine has been stable for the past two days. (7) Tobacco abuse Current Visit: Yes Status: Chronic Assessment and plan: encourage cessation NRT prn (8) DVT prophylaxis Current Visit: Yes Status: Acute Assessment and plan: sq heparin - Time Spent With Patient Total time spent is greater than 50% in coordination of care (as documented) at patient's floor/unit and/or counseling patient: - Subjective Interval history: Ms. Harris was seen at bedside this morning. She presented to the ED three days ago due to left leg pain. At presentation she had left lower extremity swelling and pain. At presentation she was hypotensive and tachycardic. She was being treated for left lower leg cellulitis for the past 3 weeks with ciprofloxacin, clindamycin and doxycycline for left lower leg cellulitis. This morning she only elicits pain in her left lower leg. She denies fever, chills, nausea, emesis, diarrhea, shortness of breath or chest pain. She lives at home and requires a wheel chair to get around. - Constitutional Vitals: Temp Pulse Resp BP Pulse Ox 97.5 F L 86 15 154/83 94 12/23/17 07:01 12/23/17 07:01 12/23/17 07:01 12/23/17 07:01 12/23/17 07:01 General appearance: Present: disheveled, A&O X 3, morbidly obese, no acute distress - Head Head exam: Present: atraumatic, normocephalic - Eye Eye exam: Present: EOMI, sclera anicteric - ENT ENT exam: Present: mucous membranes moist - Neck Neck exam general surgery: Present: full ROM, trachea midline - Respiratory Respiratory exam: Absent: stridor, wheezes Additional comments: decreased auscultation due to body habitus - Cardiovascular Cardiovascular exam: Present: RRR. Absent: clicks, gallop, JVD - GI/Abdominal GI/Abdominal exam: Present: normal bowel sounds, soft. Absent: firm, guarding - Extremities Exam Extremities exam: Present: warm. Absent: calf tenderness, pedal edema Additional comments: healing rash on the left lower leg, right leg wrapped due to chronic lymphadema - Psychiatric Psychiatric exam: Present: flat affect - Skin Skin exam: Present: dry, rash (healing rash of the left lower leg), warm. Absent: cyanosis Internal Medicine: Result - Labs CBC & Chem 7: 12/23/17 07:52 12/23/17 07:52 Labs: Short CBC 12/23/17 Range/Units 07:52 WBC 8.7 (4.3-11.1) K/mcL Hgb 11.1 L (11.5-15.4) g/dL Hct 34.9 L (35.3-44.9) % Plt Count 230 (140-400) K/mcL Neutrophils # 4.9 (1.6-8.9) K/mcL BMP 12/23/17 07:52 Sodium 139 Potassium 4.1 Chloride 111 H Carbon Dioxide 23 BUN 15 Creatinine 0.88 Glucose 192 H Calcium 8.2 L Consult Discharge Plan - Plan Referrals: Reagan Traore MD [Primary Care Provider] -
[2017-12-23] MEDS ORDERED: Lisinopril 20 MG TABLET PO SCH (09:30)
[2017-12-23] MEDS ORDERED: Furosemide 20 MG TABLET PO SCH (09:30)
[2017-12-23] MEDS: Nicotine 21 MG PATCH.TD24 TD SCH (09:38)
[2017-12-23] MEDS: Pregabalin 50 MG CAPSULE PO SCH (09:39)
[2017-12-23] MEDS: Aspirin Enteric Coated 81 MG Tablet PO SCH (09:39)
[2017-12-23] MEDS ORDERED: Insulin NPH 100 UNIT/ML (x5UNIT) SQ SCH (10:00)
[2017-12-23] MEDS ORDERED: Insulin LISPRO 300 UNITS/3 ML VIAL SQ SCH (12:00)
[2017-12-23 14:58] VITALS: BP 131/78
--- NOTE | 2017-12-23 15:18 | Discharge Summary ---
<Analisa Andrade - Last Filed: 12/23/17 16:26> - NOTES TO OUTPATIENT PROVIDER Notes to Outpatient Provider: Ms. Harris presente to the ED due to left lower left edema and pain. Upon presentation she was septic and received IV vancomyci with IV fluids and has been hemodynamically stable since presentation. Her venous doppler showed normal findings. During admission she received IV vancomycin and metronidazole. She will be discharged with oral doxycycline and ciprofloxacin for 5 days. Of note she is on norvasc and may consider switching due to her chronic history of leg edema. Date of Encounter: 12/23/17 Time of Encounter: 03:10 - Discharge Diagnosis (1) Cellulitis of left lower limb Priority: Primary Status: Acute (2) Severe sepsis Priority: Secondary Status: Resolved (3) Lymphedema of both lower extremities Priority: Secondary Status: Chronic (4) Diabetes mellitus Priority: Secondary Status: Chronic Qualifiers: Diabetes mellitus type: type 2 Diabetes mellitus care home insulin use: with editor farm journal use Diabetes mellitus complication status: with skin complications Diabetes mellitus complication detail: with dermatitis Qualified Code(s): E11.620 - Type 2 diabetes mellitus with diabetic dermatitis; Z79.4 - correction (current) use of insulin (5) Hypertension Priority: Secondary Status: Chronic Qualifiers: Hypertension type: essential hypertension Qualified Code(s): I10 - Essential (primary) hypertension (6) SISI (acute kidney injury) Priority: Secondary Status: Resolved (7) Tobacco abuse Priority: Secondary Status: Chronic (8) DVT prophylaxis Priority: Secondary Status: Resolved Hospital course: Ms. Harris is a 62 year old female who presented to the ED due to left lower leg edema and pain. She had recent admission for cellulitis and failed outpatient therapy of doxycycline, clindamycin and ciprofloxacin, suspected due to her oral intake of iron with her medication as it can chelate doxycyline and decreases its efficacy. Upon presentation she was septic-tachycardia, elevated WBCs, hypertension, left lower extremity cellulits. She received IV vancomycin, IV fluids and metronidazole and has been hemodynamically stable since presentation. She has received antibiotics for the past three days and her blood cultures have not shown any growth. Due to leg edema she had a venous doppler which showed normal findings. Her vitals have been stable and her WBC has decreased from 13 to 8.7. She also feels she has improved since her admission. She will be discharged with oral doxycycline and ciprofloxacin for 5 days. She is advised to avoid her iron and calcium products with her antibiotics. Discharge discussed with: patient - Time Spent with Patient Total time spent providing and/or coordinating discharge services: - Discharge Medications Prescriptions: Ciprofloxacin HCl [Cipro] 500 mg PO BID 5 Days #10 tablet Doxycycline 100 mg PO BID 5 Days #10 capsule Home Medications: Amitriptyline [Elavil] 50 mg PO HS 01/30/15 [History] Atorvastatin Calcium [Lipitor] 40 mg PO HS 01/30/15 [History] Furosemide [Lasix] 20 mg PO DAILY PRN 01/30/15 [History] Lisinopril [Zestril] 20 mg PO DAILY 01/30/15 [History] Loratadine [Claritin] 10 mg PO HS 01/30/15 [History] Venlafaxine [Effexor] 75 mg PO TID 01/30/15 [History] Insulin ASPART [NovoLOG] 12 unit SQ TIDWM 07/08/15 [History] Insulin Glargine,Hum.rec.anlog [Lantus Solostar] 75 unit SQ BID 07/08/15 [ History] SitaGLIPtin [Januvia] 100 mg PO DAILY 07/08/15 [History] amLODIPine [Norvasc] 5 mg PO DAILY 04/22/16 [History] Butalbital/Aspirin/Caffeine [Fiorinal 50-325-40 mg Capsule] 1 cap PO BID PRN [History] Metformin HCl [Glucophage Xr] 750 mg PO HS 12/06/16 [History] Oxycodone HCl 15 mg PO Q6H PRN 12/06/16 [History] SUMAtriptan Succinate [Imitrex] 100 mg PO DAILY PRN 12/06/16 [History] Aspirin [Lo-Dose Aspirin EC] 81 mg PO DAILY 12/20/17 [History] Cholecalciferol (Vitamin D3) [Vitamin D3] 50,000 unit PO SA 12/20/17 [History] Cyclobenzaprine [Flexeril] 10 mg PO TID PRN 12/20/17 [History] Levothyroxine Sodium [Levo-T] 200 mcg PO DAILY 12/20/17 [History] Levothyroxine [Synthroid] 75 mcg PO 0630 12/20/17 [History] Potassium Chloride [K-Tab ER] 10 meq PO DAILY PRN 12/20/17 [History] Pregabalin [Lyrica] 100 mg PO TID 12/20/17 [History] Trazodone HCl 200 mg PO HS 12/20/17 [History] Ciprofloxacin HCl [Cipro] 500 mg PO BID 5 Days #10 tablet 12/23/17 [Rx] Doxycycline 100 mg PO BID 5 Days #10 capsule 12/23/17 [Rx] Allergies/Adverse Reactions: 3 Allergy/AdvReac Type Severity Reaction Status Date / Time Sulfa (Sulfonamide Allergy Intermediate Hives Verified 12/20/17 17:13 Antibiotics) cefdinir [From Omnicef] Allergy Difficulty Verified 12/20/17 17:13 Breathing Ether Allergy Anaphylaxis Verified 12/20/17 17:13 Penicillins [PCN] Allergy Anaphylaxis Verified 12/20/17 17:13 insulin detemir AdvReac Mild See Verified 12/20/17 17:13 [From Levemir] Comments Methadone [From Methadose] AdvReac Drowsy Verified 12/20/17 17:13 Date of admission: 12/20/17 17:47 Primary care physician: Reagan Traore MD Consults: 12/23/17 11:[address] Judge [CONS] Routine Reason for SW Consult: Home Care Discharging clinician: Analisa Andrade Anticipated date of discharge: 12/23/17 - Constitutional Vitals: Temp Pulse Resp BP Pulse Ox 97.8 F 88 16 131/78 94 12/23/17 14:57 12/23/17 14:57 12/23/17 14:57 12/23/17 14:57 12/23/17 14:57 General appearance: Present: disheveled, A&O X 3, morbidly obese, no acute distress - Head Head exam: Present: atraumatic, normocephalic - Eye Eye exam: Present: EOMI, sclera anicteric - ENT ENT exam: Present: mucous membranes moist - Neck Neck exam general surgery: Present: full ROM, trachea midline - Respiratory Respiratory exam: Present: CTAB. Absent: rales, rhonchi, wheezes - Cardiovascular Cardiovascular exam: Present: RRR. Absent: clicks, gallop, JVD Additional comments: Unable to accurately auscultate due to body habitus - GI/Abdominal GI/Abdominal exam: Present: normal bowel sounds, soft. Absent: firm, guarding, rigid - Extremities Exam Extremities exam: Present: warm. Absent: cyanotic Additional comments: Wheelchair bound, left leg has healing cellulitis. Right leg is wrapped in naseem wrap due to chronic venous stasis. - Neurological Exam Neurological exam: Present: alert, altered, oriented X3 - Skin Skin exam: Present: dry Additional comments: Healing rash on the left lower leg, lower leg is warm and erythematous - Patient Status Disposition: Home Health Service Functional capacity at discharge: wheelchair bound Overall status at discharge: patient is progressing back to baseline - Discharge Instructions Follow Up With: Reagan Traore MD [Primary Care Provider] - 12/29/17 1:15 pm - Diet and Activity Activity: resume usual activities as tolerated Diet: diabetic diet, low fat, low cholesterol, low salt diet <Cheryl Gasca - Last Filed: 12/23/17 20:21> Date of Encounter: 12/23/17 - Discharge Diagnosis (1) Lymphedema of both lower extremities Status: Chronic (2) Diabetes mellitus Status: Chronic Qualifiers: Diabetes mellitus type: type 2 Diabetes mellitus care home insulin use: with editor farm journal use Diabetes mellitus complication status: with skin complications Diabetes mellitus complication detail: with dermatitis Qualified Code(s): E11.620 - Type 2 diabetes mellitus with diabetic dermatitis; Z79.4 - correction (current) use of insulin (3) Hypertension Status: Chronic Qualifiers: Hypertension type: essential hypertension Qualified Code(s): I10 - Essential (primary) hypertension (4) Cellulitis of left lower limb Status: Acute (5) SISI (acute kidney injury) Status: Resolved (6) Severe sepsis Status: Resolved (7) Tobacco abuse Status: Chronic (8) DVT prophylaxis Status: Resolved Hospital course: Ms. Harris is a 62 year old female - Time Spent with Patient Total time spent providing and/or coordinating discharge services: Date of admission: 12/20/17 17:47 Primary care physician: Reagan Traore MD Consults: 12/23/17 11:[address] [CONS] Routine Reason for SW Consult: Home Care - Constitutional Vitals: Temp Pulse Resp BP Pulse Ox 97.8 F 88 16 131/78 94 12/23/17 14:57 12/23/17 14:57 12/23/17 14:57 12/23/17 14:57 12/23/17 14:57 - Attending Attestation Patient was seen and examined. I agree with the discharge summary as dictated above by the resident physician. Discharge plans and recommendations were made under my direct supervision.
--- NOTE | 2017-12-23 16:11 | Physician Discharge Referral ---
Home Health/Hosp Referral Info Transfer to: Home Health Provider in Charge Post Discharge: PCP - Diagnosis (1) Cellulitis of left lower limb Status: Acute (2) Severe sepsis Status: Resolved (3) Lymphedema of both lower extremities Status: Chronic (4) Diabetes mellitus Status: Chronic (5) Hypertension Status: Chronic (6) SISI (acute kidney injury) Status: Resolved (7) Tobacco abuse Status: Chronic (8) DVT prophylaxis Status: Resolved - Respiratory Orders Smoking Cessation: Smoking cessation has been advised. For more information, call the [place] [employer] Quit Line at 0-132-GQNS-NOW. - Diet/Nutrition Diet/Nutrition: List: Diabetic diet - Activity Activity Orders: Ambulate - Services Needed Following services are medically necessary services: Home Health Aide - Transfer Medications Prescriptions: Ciprofloxacin HCl [Cipro] 500 mg PO BID 5 Days #10 tablet Doxycycline 100 mg PO BID 5 Days #10 capsule Home Medications: Amitriptyline [Elavil] 50 mg PO HS 01/30/15 [History] Atorvastatin Calcium [Lipitor] 40 mg PO HS 01/30/15 [History] Furosemide [Lasix] 20 mg PO DAILY PRN 01/30/15 [History] Lisinopril [Zestril] 20 mg PO DAILY 01/30/15 [History] Loratadine [Claritin] 10 mg PO HS 01/30/15 [History] Venlafaxine [Effexor] 75 mg PO TID 01/30/15 [History] Insulin ASPART [NovoLOG] 12 unit SQ TIDWM 07/08/15 [History] Insulin Glargine,Hum.rec.anlog [Lantus Solostar] 75 unit SQ BID 07/08/15 [ History] SitaGLIPtin [Januvia] 100 mg PO DAILY 07/08/15 [History] amLODIPine [Norvasc] 5 mg PO DAILY 04/22/16 [History] Butalbital/Aspirin/Caffeine [Fiorinal 50-325-40 mg Capsule] 1 cap PO BID PRN [History] Metformin HCl [Glucophage Xr] 750 mg PO HS 12/06/16 [History] Oxycodone HCl 15 mg PO Q6H PRN 12/06/16 [History] SUMAtriptan Succinate [Imitrex] 100 mg PO DAILY PRN 12/06/16 [History] Aspirin [Lo-Dose Aspirin EC] 81 mg PO DAILY 12/20/17 [History] Cholecalciferol (Vitamin D3) [Vitamin D3] 50,000 unit PO SA 12/20/17 [History] Cyclobenzaprine [Flexeril] 10 mg PO TID PRN 12/20/17 [History] Levothyroxine Sodium [Levo-T] 200 mcg PO DAILY 12/20/17 [History] Levothyroxine [Synthroid] 75 mcg PO 0630 12/20/17 [History] Potassium Chloride [K-Tab ER] 10 meq PO DAILY PRN 12/20/17 [History] Pregabalin [Lyrica] 100 mg PO TID 12/20/17 [History] Trazodone HCl 200 mg PO HS 12/20/17 [History] Ciprofloxacin HCl [Cipro] 500 mg PO BID 5 Days #10 tablet 12/23/17 [Rx] Doxycycline 100 mg PO BID 5 Days #10 capsule 12/23/17 [Rx] Allergies/Adverse Reactions: 3 Allergy/AdvReac Type Severity Reaction Status Date / Time Sulfa (Sulfonamide Allergy Intermediate Hives Verified 12/20/17 17:13 Antibiotics) cefdinir [From Omnicef] Allergy Difficulty Verified 12/20/17 17:13 Breathing Ether Allergy Anaphylaxis Verified 12/20/17 17:13 Penicillins [PCN] Allergy Anaphylaxis Verified 12/20/17 17:13 insulin detemir AdvReac Mild See Verified 12/20/17 17:13 [From Levemir] Comments Methadone [From Methadose] AdvReac Drowsy Verified 12/20/17 17:13 Certification: Further, I certify that my clinical findings support that this patient is homebound (i.e. absences from home require considerable and taxing effort and are for medical reasons or [employer] services or infrequently or short duration when for other reasons) because: Homebound Reason: Patient requires assistance of a person or device to safely leave home (is wheelchair bound ) Attestation: My signature below is to certify that this patient is under my care and that I, or nurse practitioner, or a physician's physical therapist assistant working with me, has a face-to -face encounter with this patient.
[2017-12-23] MEDS ORDERED: Insulin DETEMIR 100 UNIT/ML X5UNITS SQ SCH (21:00)
== END 2017-12-23 17:45 | disposition home health service (06) | DRG 872 ==
LOC: EMEROO 16:24 → 3BNU 17:47 → SUATTDRO 17:47 → 3ANU 19:15
PROVIDERS: ADMIT Internal Medicine; ATTEND Internal Medicine

== ENCOUNTER 2020-10-23 17:12 | Inpatient (IN) ==
[2020-10-23] MEDS ORDERED: *HR* LORazepam 0.5 MG TABLET PO PRN (20:46)
[2020-10-23] MEDS ORDERED: *HR* OxyCODONE Immed Rel 15 MG TABLET PO PRN (20:46)
[2020-10-23] MEDS ORDERED: Furosemide 20 MG TABLET PO PRN (20:46)
[2020-10-23] MEDS ORDERED: Dextrose Gel 15 GM/37.5 ML TUBE PO PRN ×2 (20:51)
[2020-10-23] MEDS ORDERED: *HR* HYDROcodone/Acet 5/325 mg TABLET PO PRN (20:51)
[2020-10-23] MEDS ORDERED: *HR* OxyCODONE Immed Rel 5 MG TABLET PO PRN (20:51)
[2020-10-23] MEDS ORDERED: *HR* Promethazine 25 MG/ML VIAL IM PRN (20:51)
[2020-10-23] MEDS ORDERED: Melatonin 3 MG TABLET PO PRN (20:51)
[2020-10-23] MEDS ORDERED: *HR* Dextrose 50 % in Water (Vial) 50 ML VIAL IVP PRN (20:51)
[2020-10-23] MEDS ORDERED: D5% in Water 1,000 ML IVC PRN (20:51)
[2020-10-23] MEDS ORDERED: Acetaminophen 325 MG TABLET PO PRN (20:51)
[2020-10-23] MEDS ORDERED: Ondansetron 4 MG/2 ML VIAL IVP PRN (20:51)
[2020-10-23] MEDS ORDERED: Naloxone 0.4 MG/ML INJ IVP PRN (20:51)
[2020-10-23] MEDS ORDERED: 0.9 % Sodium Chloride 1,000 ML IVC SCH (21:00)
[2020-10-23] MEDS ORDERED: Gadolinium Contrast Agent (WT Based) IV PRN (21:30)
[2020-10-23] MEDS ORDERED: 0.9 % Sodium Chloride 1,000 ML IVC ONE (21:37)
[2020-10-23] MEDS: Morphine Sulfate ER (12 HR) 15 MG TABLET.ER PO SCH (22:23)
[2020-10-23] MEDS: Loratadine 10 MG TABLET PO SCH (22:23)
[2020-10-23] MEDS: Pregabalin 50 MG CAPSULE PO SCH (22:23)
[2020-10-24 00:32] LABS: Adenovirus Not Detected (Not Detect); Bordetella Pertussis Not Detected (Not Detect); Chlamydophila pneumoniae Not Detected (Not Detect); Coronavirus 229E Not Detected (Not Detect); Coronavirus HKU1 Not Detected (Not Detect); Coronavirus NL63 Not Detected (Not Detect); Coronavirus OC43 Not Detected (Not Detect); Human Metapneumovirus Not Detected (Not Detect); Human Rhinovirus/Enterovirus Not Detected (Not Detect); Influenza A Subtype 2009 H1 Not Detected (Not Detect); Influenza B Not Detected (Not Detect); Mycoplasma pneumoniae Not Detected (Not Detect); Parainfluenza Virus 1 Not Detected (Not Detect); Parainfluenza Virus 2 Not Detected (Not Detect); Parainfluenza Virus 3 Not Detected (Not Detect); Parainfluenza Virus 4 Not Detected (Not Detect); Respiratory Syncytial Virus Not Detected (Not Detect); SARS-CoV-2 Not Detected (Not Detect)
[2020-10-24] MEDS: Insulin LISPRO 300 UNITS/3 ML VIAL SUBQ SCH ×4 (02:08→19:42)
[2020-10-24] MEDS ORDERED: Vancomycin 1,500 MG/265 ML IV.SOLN IVPB SCH (06:00)
[2020-10-24] MEDS: Nystatin POWDER 30 GM BOTTLE TP SCH ×4 (06:15→22:39)
[2020-10-24 06:42] LABS: Basophils # 0.1 K/mcL (0.0-0.2); Basophils % 0.3 %; Eosinophils # 0.3 K/mcL (0.0-0.6); Eosinophils % 1.6 %; Hematocrit 32.8 % (35.3-44.9); Hemoglobin 10.4 g/dL (11.5-15.4); Immature Granulocytes % 0.9 % (0-4); Lymphocytes # 1.9 K/mcL (0.6-4.6); Lymphocytes % 9.1 %; Mean Corpuscular HGB Conc 31.7 g/dL (31.6-35.5); Mean Corpuscular Hemoglobin 26.5 pg (28.0-33.3); Mean Corpuscular Volume 83.7 fL (83.0-100.0); Mean Platelet Volume 9.3 fL (9.4-12.4); Monocytes # 1.1 K/mcL (0.0-1.3); Monocytes % 5.4 %; Neutrophils # 16.7 K/mcL (1.6-8.9); Platelet Count 381 K/mcL (140-400); Red Blood Count 3.92 M/mcL (3.82-4.97); Red Cell Distribution Width 16.5 % (11.5-14.5); Segmented Neutrophils % 82.7 %; White Blood Count 20.3 K/mcL (4.3-11.1)
[2020-10-24 07:00] LABS: Calcium 7.7 mg/dL (8.6-10.3); Potassium 4.2 mEq/L (3.5-5.1)
[2020-10-24] MEDS: Morphine Sulfate ER (12 HR) 15 MG TABLET.ER PO SCH ×2 (08:31→22:38)
[2020-10-24] MEDS: Pregabalin 50 MG CAPSULE PO SCH (08:31)
[2020-10-24] MEDS ORDERED: amLODIPine 5 MG TABLET PO SCH (09:00)
[2020-10-24] MEDS ORDERED: Aspirin Enteric Coated 81 MG Tablet PO SCH (09:00)
[2020-10-24] MEDS ORDERED: lisinopriL 20 MG TABLET PO SCH (09:00)
[2020-10-24] MEDS ORDERED: *HR* OxyCODONE Immed Rel 15 MG TABLET PO PRN (10:12)
[2020-10-24] MEDS ORDERED: *HR* LORazepam 0.5 MG TABLET PO PRN (10:12)
[2020-10-24 10:17] LABS: Estimated Average Glucose 226 mg/dl; Hemoglobin A1C 9.5 %
[2020-10-24] MEDS: 0.9 % Sodium Chloride 1,000 ML IVC SCH ×2 (11:19→20:08)
[2020-10-24] MEDS ORDERED: *HR* Heparin 5,000 UNIT/ML VIAL SQ SCH (18:00)
[2020-10-24] MEDS ORDERED: Vancomycin 1,000 MG VIAL ONE (18:01)
[2020-10-24] MEDS ORDERED: Lidocaine 1% 20 ML MDV ONE (18:34)
[2020-10-24] MEDS ORDERED: *HR* Propofol 200 MG/20 ML VIAL IVP ONE (18:44)
[2020-10-24] MEDS ORDERED: LANTUS SQ SCH (21:00)
[2020-10-24] MEDS ORDERED: traZODone 50 MG TABLET PO SCH (21:00)
[2020-10-24] MEDS ORDERED: Pregabalin 50 MG CAPSULE PO SCH (21:00)
[2020-10-24] MEDS ORDERED: Insulin DETEMIR 100 UNIT/ML X5UNITS SUBQ SCH ×2 (21:00)
[2020-10-24] MEDS: Loratadine 10 MG TABLET PO SCH (22:38)
[2020-10-25] MEDS ORDERED: D5% in Water 1,000 ML IVC PRN (00:39)
[2020-10-25] MEDS ORDERED: Naloxone 0.4 MG/ML INJ IVP PRN (00:39)
[2020-10-25] MEDS ORDERED: *HR* Dextrose 50 % in Water (Vial) 50 ML VIAL IVP PRN (00:39)
[2020-10-25] MEDS ORDERED: Gadolinium Contrast Agent (WT Based) IV PRN (00:39)
[2020-10-25] MEDS ORDERED: *HR* LORazepam 0.5 MG TABLET PO PRN (00:39)
[2020-10-25] MEDS ORDERED: Dextrose Gel 15 GM/37.5 ML TUBE PO PRN ×2 (00:39)
[2020-10-25] MEDS ORDERED: Ondansetron 4 MG/2 ML VIAL IVP PRN (00:39)
[2020-10-25] MEDS ORDERED: Furosemide 20 MG TABLET PO PRN (00:39)
[2020-10-25] MEDS ORDERED: *HR* OxyCODONE Immed Rel 15 MG TABLET PO PRN (00:39)
[2020-10-25] MEDS ORDERED: *HR* Promethazine 25 MG/ML VIAL IM PRN (00:39)
[2020-10-25] MEDS ORDERED: Melatonin 3 MG TABLET PO PRN (00:39)
[2020-10-25] MEDS: Acetaminophen 325 MG TABLET PO PRN ×2 (01:20→15:21)
[2020-10-25] MEDS: Insulin LISPRO 300 UNITS/3 ML VIAL SUBQ SCH ×4 (01:24→18:08)
[2020-10-25] MEDS ORDERED: Vancomycin 2,000 MG/520 ML IV.SOLN IVPB SCH (06:00)
[2020-10-25] MEDS: Vancomycin 2,000 MG/520 ML IV.SOLN IVPB SCH (06:21)
[2020-10-25] MEDS: *HR* Heparin 5,000 UNIT/ML VIAL SQ SCH ×2 (06:22→20:09)
[2020-10-25 06:37] LABS: Basophils # 0.1 K/mcL (0.0-0.2); Basophils % 0.3 %; Eosinophils # 0.1 K/mcL (0.0-0.6); Eosinophils % 0.8 %; Hematocrit 30.6 % (35.3-44.9); Hemoglobin 9.4 g/dL (11.5-15.4); Immature Granulocytes % 1.2 % (0-4); Lymphocytes # 1.5 K/mcL (0.6-4.6); Lymphocytes % 8.1 %; Mean Corpuscular HGB Conc 30.7 g/dL (31.6-35.5); Mean Corpuscular Hemoglobin 26.2 pg (28.0-33.3); Mean Corpuscular Volume 85.2 fL (83.0-100.0); Mean Platelet Volume 9.1 fL (9.4-12.4); Monocytes # 1.2 K/mcL (0.0-1.3); Monocytes % 6.3 %; Neutrophils # 15.2 K/mcL (1.6-8.9); Platelet Count 380 K/mcL (140-400); Red Blood Count 3.59 M/mcL (3.82-4.97); Red Cell Distribution Width 16.5 % (11.5-14.5); Segmented Neutrophils % 83.3 %; White Blood Count 18.2 K/mcL (4.3-11.1)
[2020-10-25 07:01] LABS: BUN/Creatinine Ratio 20 (6-26); Blood Urea Nitrogen 17 mg/dL (8-23); Calcium 7.8 mg/dL (8.6-10.3); Carbon Dioxide 22 mEq/L (23-29); Chloride 109 mEq/L (98-107); Glucose 37 mg/dL (70-105); Osmolality,Calculated 282 (280-300); Sodium 137 mEq/L (136-145); eGFR For African Americans > 60 (> 60); eGFR For Non-African Americans > 60 (> 60)
[2020-10-25] MEDS: Aspirin Enteric Coated 81 MG Tablet PO SCH (08:13)
[2020-10-25] MEDS: Morphine Sulfate ER (12 HR) 15 MG TABLET.ER PO SCH ×2 (08:13→20:08)
[2020-10-25] MEDS: Pregabalin 50 MG CAPSULE PO SCH ×2 (08:23→20:18)
[2020-10-25] MEDS: Nystatin POWDER 30 GM BOTTLE TP SCH ×3 (08:24→20:09)
[2020-10-25] MEDS: metroNIDAZOLE 500 MG TABLET PO SCH ×2 (15:20→20:06)
[2020-10-25] MEDS: levoFLOXacin 750 MG/150 ML 750 MG/150 ML BAG IVPB SCH (15:20)
[2020-10-25] MEDS: *HR* OxyCODONE Immed Rel 5 MG TABLET PO PRN (15:54)
[2020-10-25] MEDS: Loratadine 10 MG TABLET PO SCH (20:07)
[2020-10-25] MEDS: traZODone 50 MG TABLET PO SCH (20:08)
[2020-10-25] MEDS: Insulin DETEMIR 100 UNIT/ML X5UNITS SUBQ SCH (20:18)
[2020-10-25] MEDS ORDERED: Insulin DETEMIR 100 UNIT/ML X5UNITS SUBQ SCH (21:00)
[2020-10-26] MEDS: Insulin LISPRO 300 UNITS/3 ML VIAL SUBQ SCH ×5 (00:49→23:24)
[2020-10-26 05:51] LABS: Basophils # 0.1 K/mcL (0.0-0.2); Basophils % 0.4 %; Eosinophils # 0.5 K/mcL (0.0-0.6); Eosinophils % 3.3 %; Hematocrit 31.3 % (35.3-44.9); Hemoglobin 9.5 g/dL (11.5-15.4); Immature Granulocytes % 1.7 % (0-4); Lymphocytes # 1.7 K/mcL (0.6-4.6); Lymphocytes % 12.2 %; Mean Corpuscular HGB Conc 30.4 g/dL (31.6-35.5); Mean Corpuscular Hemoglobin 25.7 pg (28.0-33.3); Mean Corpuscular Volume 84.8 fL (83.0-100.0); Mean Platelet Volume 9.1 fL (9.4-12.4); Monocytes # 0.9 K/mcL (0.0-1.3); Monocytes % 6.6 %; Neutrophils # 10.5 K/mcL (1.6-8.9); Platelet Count 411 K/mcL (140-400); Red Blood Count 3.69 M/mcL (3.82-4.97); Red Cell Distribution Width 16.3 % (11.5-14.5); Segmented Neutrophils % 75.8 %; White Blood Count 13.9 K/mcL (4.3-11.1)
[2020-10-26] MEDS: *HR* Heparin 5,000 UNIT/ML VIAL SQ SCH ×2 (06:27→17:33)
[2020-10-26 06:48] LABS: BUN/Creatinine Ratio 15 (6-26); Blood Urea Nitrogen 12 mg/dL (8-23); Carbon Dioxide 25 mEq/L (23-29); Chloride 107 mEq/L (98-107); Glucose 86 mg/dL (70-105); Osmolality,Calculated 283 (280-300); Potassium 3.8 mEq/L (3.5-5.1); Sodium 137 mEq/L (136-145); eGFR For African Americans > 60 (> 60); eGFR For Non-African Americans > 60 (> 60)
[2020-10-26] MEDS: metroNIDAZOLE 500 MG TABLET PO SCH ×3 (08:48→23:22)
[2020-10-26] MEDS: Morphine Sulfate ER (12 HR) 15 MG TABLET.ER PO SCH ×2 (08:48→23:23)
[2020-10-26] MEDS: Aspirin Enteric Coated 81 MG Tablet PO SCH (08:48)
[2020-10-26] MEDS: Pregabalin 50 MG CAPSULE PO SCH ×2 (08:49→23:23)
[2020-10-26] MEDS: levoFLOXacin 750 MG/150 ML 750 MG/150 ML BAG IVPB SCH (08:49)
[2020-10-26] MEDS: Nystatin POWDER 30 GM BOTTLE TP SCH ×3 (08:50→23:35)
[2020-10-26] MEDS: Vancomycin 2,000 MG/520 ML IV.SOLN IVPB SCH (10:58)
[2020-10-26] MEDS: Sennosides/Docusate Sodium TABLET PO SCH ×2 (13:05→23:20)
[2020-10-26] MEDS: *HR* OxyCODONE Immed Rel 5 MG TABLET PO PRN (17:34)
[2020-10-26] MEDS: traZODone 50 MG TABLET PO SCH (23:21)
[2020-10-26] MEDS: Loratadine 10 MG TABLET PO SCH (23:22)
[2020-10-26] MEDS: Insulin DETEMIR 100 UNIT/ML X5UNITS SUBQ SCH (23:24)
[2020-10-27] MEDS: *HR* Heparin 5,000 UNIT/ML VIAL SQ SCH ×2 (06:24→17:58)
[2020-10-27 06:44] LABS: Hematocrit 29.4 % (35.3-44.9); Hemoglobin 8.8 g/dL (11.5-15.4); Mean Corpuscular HGB Conc 29.9 g/dL (31.6-35.5); Mean Corpuscular Hemoglobin 25.7 pg (28.0-33.3); Mean Corpuscular Volume 85.7 fL (83.0-100.0); Mean Platelet Volume 10.6 fL (9.4-12.4); Platelet Count 336 K/mcL (140-400); Red Blood Count 3.43 M/mcL (3.82-4.97); Red Cell Distribution Width 16.6 % (11.5-14.5); White Blood Count 12.1 K/mcL (4.3-11.1)
[2020-10-27 07:04] LABS: BUN/Creatinine Ratio 13 (6-26); Blood Urea Nitrogen 10 mg/dL (8-23); Carbon Dioxide 21 mEq/L (23-29); Chloride 106 mEq/L (98-107); Glucose 155 mg/dL (70-105); Osmolality,Calculated 282 (280-300); Potassium 4.3 mEq/L (3.5-5.1); Sodium 135 mEq/L (136-145); eGFR For African Americans > 60 (> 60); eGFR For Non-African Americans > 60 (> 60)
[2020-10-27 07:09] LABS: Thyroid Stimulating Hormone 17.791 mcIU/mL (0.340-5.600)
[2020-10-27] MEDS: Vancomycin 2,000 MG/520 ML IV.SOLN IVPB SCH (07:21)
[2020-10-27] MEDS: Insulin LISPRO 300 UNITS/3 ML VIAL SUBQ SCH ×4 (08:27→22:09)
[2020-10-27] MEDS: metroNIDAZOLE 500 MG TABLET PO SCH ×3 (08:48→20:11)
[2020-10-27] MEDS: Pregabalin 50 MG CAPSULE PO SCH ×2 (08:48→20:12)
[2020-10-27] MEDS: Aspirin Enteric Coated 81 MG Tablet PO SCH (08:48)
[2020-10-27] MEDS: levoFLOXacin 750 MG/150 ML 750 MG/150 ML BAG IVPB SCH (08:48)
[2020-10-27] MEDS: Morphine Sulfate ER (12 HR) 15 MG TABLET.ER PO SCH ×2 (08:48→20:13)
[2020-10-27] MEDS: Sennosides/Docusate Sodium TABLET PO SCH ×2 (08:48→20:11)
[2020-10-27] MEDS: Nystatin POWDER 30 GM BOTTLE TP SCH ×3 (08:49→22:17)
[2020-10-27] MEDS ORDERED: Lidocaine -MPF 1% 5 ML AMPUL INFILT ONE (12:43)
[2020-10-27] MEDS ORDERED: Perflutren Lipid Microsphere 1.3 ML in 0.9 % Sodium Chloride 8.7 ML IVP PRN (14:07)
[2020-10-27] MEDS ORDERED: Isovue-370 500 ML BOTTLE IVP ONE (14:41)
[2020-10-27] MEDS: *HR* OxyCODONE Immed Rel 5 MG TABLET PO PRN (18:14)
[2020-10-27] MEDS: Loratadine 10 MG TABLET PO SCH (20:12)
[2020-10-27] MEDS: traZODone 50 MG TABLET PO SCH (20:12)
[2020-10-27] MEDS: Insulin DETEMIR 100 UNIT/ML X5UNITS SUBQ SCH (22:12)
[2020-10-28] MEDS: *HR* OxyCODONE Immed Rel 5 MG TABLET PO PRN ×2 (06:02→15:21)
[2020-10-28] MEDS: *HR* Heparin 5,000 UNIT/ML VIAL SQ SCH ×2 (06:39→17:48)
[2020-10-28 07:10] LABS: Basophils % 0.4 %; Eosinophils # 0.2 K/mcL (0.0-0.6); Eosinophils % 2.2 %; Hematocrit 30.3 % (35.3-44.9); Hemoglobin 9.2 g/dL (11.5-15.4); Immature Granulocytes % 4.8 % (0-4); Lymphocytes # 2.4 K/mcL (0.6-4.6); Lymphocytes % 22.6 %; Mean Corpuscular HGB Conc 30.4 g/dL (31.6-35.5); Mean Corpuscular Hemoglobin 25.6 pg (28.0-33.3); Mean Corpuscular Volume 84.4 fL (83.0-100.0); Mean Platelet Volume 8.7 fL (9.4-12.4); Monocytes # 0.9 K/mcL (0.0-1.3); Monocytes % 8.2 %; Neutrophils # 6.6 K/mcL (1.6-8.9); Platelet Count 403 K/mcL (140-400); Red Blood Count 3.59 M/mcL (3.82-4.97); Red Cell Distribution Width 16.1 % (11.5-14.5); Segmented Neutrophils % 61.8 %; White Blood Count 10.7 K/mcL (4.3-11.1)
[2020-10-28 07:25] LABS: BUN/Creatinine Ratio 12 (6-26); Blood Urea Nitrogen 9 mg/dL (8-23); Calcium 8.3 mg/dL (8.6-10.3); Carbon Dioxide 29 mEq/L (23-29); Chloride 105 mEq/L (98-107); Glucose 119 mg/dL (70-105); Osmolality,Calculated 286 (280-300); Sodium 138 mEq/L (136-145); eGFR For African Americans > 60 (> 60); eGFR For Non-African Americans > 60 (> 60)
[2020-10-28] MEDS: Insulin LISPRO 300 UNITS/3 ML VIAL SUBQ SCH ×4 (07:51→20:52)
[2020-10-28] MEDS: Vancomycin 2,000 MG/520 ML IV.SOLN IVPB SCH (08:09)
[2020-10-28] MEDS: Morphine Sulfate ER (12 HR) 15 MG TABLET.ER PO SCH ×2 (09:40→20:41)
[2020-10-28] MEDS: Aspirin Enteric Coated 81 MG Tablet PO SCH (09:40)
[2020-10-28] MEDS: Pregabalin 50 MG CAPSULE PO SCH ×2 (09:40→20:41)
[2020-10-28] MEDS: Sennosides/Docusate Sodium TABLET PO SCH ×2 (09:40→20:39)
[2020-10-28] MEDS: metroNIDAZOLE 500 MG TABLET PO SCH ×3 (09:41→20:42)
[2020-10-28] MEDS: levoFLOXacin 750 MG/150 ML 750 MG/150 ML BAG IVPB SCH (09:41)
[2020-10-28] MEDS: Nystatin POWDER 30 GM BOTTLE TP SCH ×3 (10:25→20:44)
[2020-10-28] MEDS: traZODone 50 MG TABLET PO SCH (20:40)
[2020-10-28] MEDS: Loratadine 10 MG TABLET PO SCH (20:40)
[2020-10-28] MEDS: Insulin DETEMIR 100 UNIT/ML X5UNITS SUBQ SCH (20:53)
[2020-10-29] MEDS: *HR* Heparin 5,000 UNIT/ML VIAL SQ SCH ×2 (05:55→17:15)
[2020-10-29] MEDS: *HR* OxyCODONE Immed Rel 5 MG TABLET PO PRN ×2 (06:06→15:52)
[2020-10-29 06:07] LABS: Hematocrit 28.8 % (35.3-44.9); Hemoglobin 9.1 g/dL (11.5-15.4); Mean Corpuscular HGB Conc 31.6 g/dL (31.6-35.5); Mean Corpuscular Hemoglobin 26.5 pg (28.0-33.3); Mean Corpuscular Volume 83.7 fL (83.0-100.0); Platelet Count 389 K/mcL (140-400); Red Blood Count 3.44 M/mcL (3.82-4.97); Red Cell Distribution Width 16.4 % (11.5-14.5)
[2020-10-29] MEDS: Vancomycin 2,000 MG/520 ML IV.SOLN IVPB SCH (06:08)
[2020-10-29 06:23] LABS: BUN/Creatinine Ratio 13 (6-26); Blood Urea Nitrogen 11 mg/dL (8-23); Calcium 7.9 mg/dL (8.6-10.3); Carbon Dioxide 28 mEq/L (23-29); Chloride 106 mEq/L (98-107); Glucose 126 mg/dL (70-105); Osmolality,Calculated 289 (280-300); Potassium 4.1 mEq/L (3.5-5.1); Sodium 139 mEq/L (136-145); eGFR For African Americans > 60 (> 60); eGFR For Non-African Americans > 60 (> 60)
[2020-10-29] MEDS: Insulin LISPRO 300 UNITS/3 ML VIAL SUBQ SCH ×4 (07:21→20:09)
[2020-10-29] MEDS: metroNIDAZOLE 500 MG TABLET PO SCH ×3 (08:55→20:00)
[2020-10-29] MEDS: Pregabalin 50 MG CAPSULE PO SCH ×2 (08:55→20:00)
[2020-10-29] MEDS: Aspirin Enteric Coated 81 MG Tablet PO SCH (08:55)
[2020-10-29] MEDS: Morphine Sulfate ER (12 HR) 15 MG TABLET.ER PO SCH ×2 (08:55→20:01)
[2020-10-29] MEDS: Sennosides/Docusate Sodium TABLET PO SCH ×2 (08:56→20:00)
[2020-10-29] MEDS: Nystatin POWDER 30 GM BOTTLE TP SCH ×3 (08:56→20:02)
[2020-10-29] MEDS: levoFLOXacin 750 MG/150 ML 750 MG/150 ML BAG IVPB SCH (08:56)
[2020-10-29] MEDS ORDERED: Heparin 1,000 UNITS/500 mL 500 ML ONE (10:45)
[2020-10-29] MEDS ORDERED: *HR* Heparin 10,000 UNIT/10 ML VIAL ONE (10:45)
[2020-10-29] MEDS ORDERED: Isovue-300 200 mL Infus..BTL ONE (10:45)
[2020-10-29] MEDS ORDERED: 0.9 % Sodium Chloride 2,000 ML ONE (10:45)
[2020-10-29] MEDS ORDERED: Isovue-250 100 ML INFUS..BTL ONE (10:53)
[2020-10-29] MEDS ORDERED: *HR* Midazolam HCl 2 MG/2 ML VIAL ONE (11:59)
[2020-10-29] MEDS ORDERED: *HR* FentaNYL (PF) 100 MCG/2 ML VIAL ONE (12:34)
[2020-10-29] MEDS: Loratadine 10 MG TABLET PO SCH (20:00)
[2020-10-29] MEDS: traZODone 50 MG TABLET PO SCH (20:01)
[2020-10-29] MEDS: Insulin DETEMIR 100 UNIT/ML X5UNITS SUBQ SCH (20:02)
[2020-10-30 02:07] LABS: Hematocrit 28.3 % (35.3-44.9); Hemoglobin 8.6 g/dL (11.5-15.4); Mean Corpuscular HGB Conc 30.4 g/dL (31.6-35.5); Mean Corpuscular Hemoglobin 25.7 pg (28.0-33.3); Mean Corpuscular Volume 84.5 fL (83.0-100.0); Mean Platelet Volume 8.8 fL (9.4-12.4); Platelet Count 352 K/mcL (140-400); Red Blood Count 3.35 M/mcL (3.82-4.97); Red Cell Distribution Width 16.5 % (11.5-14.5); White Blood Count 10.8 K/mcL (4.3-11.1)
[2020-10-30 02:29] LABS: BUN/Creatinine Ratio 15 (6-26); Blood Urea Nitrogen 12 mg/dL (8-23); Calcium 7.9 mg/dL (8.6-10.3); Carbon Dioxide 28 mEq/L (23-29); Chloride 104 mEq/L (98-107); Glucose 196 mg/dL (70-105); Osmolality,Calculated 287 (280-300); Potassium 3.8 mEq/L (3.5-5.1); Sodium 136 mEq/L (136-145); eGFR For African Americans > 60 (> 60); eGFR For Non-African Americans > 60 (> 60)
[2020-10-30 02:38] LABS: Eosinophils # 0.2 K/mcL (0.0-0.6); Lymphocytes # 1.3 K/mcL (0.6-4.6); Monocytes # 0.4 K/mcL (0.0-1.3); Neutrophils # 8.4 K/mcL (1.6-8.9)
[2020-10-30 02:39] LABS: Anisocytosis 1+ (Not Present); Platelet Estimate Normal (Normal)
[2020-10-30] MEDS: *HR* OxyCODONE Immed Rel 5 MG TABLET PO PRN ×2 (04:31→14:26)
[2020-10-30] MEDS: Vancomycin 2,000 MG/520 ML IV.SOLN IVPB SCH (04:32)
[2020-10-30] MEDS: *HR* Heparin 5,000 UNIT/ML VIAL SQ SCH ×2 (04:32→17:20)
[2020-10-30] MEDS: Insulin LISPRO 300 UNITS/3 ML VIAL SUBQ SCH ×4 (09:47→22:49)
[2020-10-30] MEDS: Pregabalin 50 MG CAPSULE PO SCH ×2 (09:49→22:48)
[2020-10-30] MEDS: Sennosides/Docusate Sodium TABLET PO SCH ×2 (09:49→22:47)
[2020-10-30] MEDS: levoFLOXacin 750 MG/150 ML 750 MG/150 ML BAG IVPB SCH (09:49)
[2020-10-30] MEDS: Morphine Sulfate ER (12 HR) 15 MG TABLET.ER PO SCH ×2 (09:49→22:48)
[2020-10-30] MEDS: metroNIDAZOLE 500 MG TABLET PO SCH ×3 (09:50→22:48)
[2020-10-30] MEDS: Nystatin POWDER 30 GM BOTTLE TP SCH ×3 (09:50→22:50)
[2020-10-30] MEDS: Aspirin Enteric Coated 81 MG Tablet PO SCH (09:50)
[2020-10-30] MEDS: traZODone 50 MG TABLET PO SCH (22:48)
[2020-10-30] MEDS: Insulin DETEMIR 100 UNIT/ML X5UNITS SUBQ SCH (22:48)
[2020-10-30] MEDS: Loratadine 10 MG TABLET PO SCH (22:48)
[2020-10-30] MEDS: Acetaminophen 325 MG TABLET PO PRN (22:48)
[2020-10-31] MEDS: *HR* OxyCODONE Immed Rel 5 MG TABLET PO PRN ×2 (03:50→13:58)
[2020-10-31 05:11] LABS: Influenza A PCR Negative (Negative); Influenza B PCR Negative (Negative); Resp. Syncytial Virus PCR Negative (Negative)
[2020-10-31 05:12] LABS: SARS-CoV-2 by PCR (In House) Negative (Negative)
[2020-10-31] MEDS: *HR* Heparin 5,000 UNIT/ML VIAL SQ SCH ×3 (05:48→17:38)
[2020-10-31 06:35] LABS: BUN/Creatinine Ratio 16 (6-26); Blood Urea Nitrogen 14 mg/dL (8-23); Carbon Dioxide 28 mEq/L (23-29); Chloride 104 mEq/L (98-107); Glucose 147 mg/dL (70-105); Osmolality,Calculated 287 (280-300); Potassium 3.8 mEq/L (3.5-5.1); Sodium 137 mEq/L (136-145); eGFR For African Americans > 60 (> 60); eGFR For Non-African Americans > 60 (> 60)
[2020-10-31] MEDS: Vancomycin 2,000 MG/520 ML IV.SOLN IVPB SCH (06:58)
[2020-10-31] MEDS: Insulin LISPRO 300 UNITS/3 ML VIAL SUBQ SCH ×4 (07:28→21:37)
[2020-10-31] MEDS: Aspirin Enteric Coated 81 MG Tablet PO SCH (07:56)
[2020-10-31] MEDS: metroNIDAZOLE 500 MG TABLET PO SCH ×3 (07:56→21:31)
[2020-10-31] MEDS: Nystatin POWDER 30 GM BOTTLE TP SCH ×3 (07:56→21:40)
[2020-10-31] MEDS: Sennosides/Docusate Sodium TABLET PO SCH ×2 (07:56→21:31)
[2020-10-31] MEDS: Morphine Sulfate ER (12 HR) 15 MG TABLET.ER PO SCH ×2 (07:56→21:31)
[2020-10-31] MEDS: Pregabalin 50 MG CAPSULE PO SCH ×2 (07:56→21:31)
[2020-10-31] MEDS: levoFLOXacin 750 MG/150 ML 750 MG/150 ML BAG IVPB SCH (07:56)
[2020-10-31 14:59] LABS: Mean Corpuscular HGB Conc 31.3 g/dL (31.6-35.5); Mean Corpuscular Hemoglobin 26.2 pg (28.0-33.3); Mean Platelet Volume 8.9 fL (9.4-12.4); Platelet Count 384 K/mcL (140-400); Red Blood Count 3.81 M/mcL (3.82-4.97); Red Cell Distribution Width 16.6 % (11.5-14.5); White Blood Count 13.1 K/mcL (4.3-11.1)
[2020-10-31] MEDS ORDERED: Vancomycin 1,000 MG, Sodium Chloride IRRigation 1,000 ML IR ONE ×2 (17:30→20:17)
[2020-10-31] MEDS ORDERED: Vancomycin 1,000 MG, 0.9 % Sodium Chloride 1,000 ML IR ONE ×2 (17:30→20:17)
[2020-10-31] MEDS ORDERED: Lidocaine -MPF 2% 2 ML VIAL ONE (17:45)
[2020-10-31] MEDS ORDERED: *HR* Propofol 200 MG/20 ML VIAL IVP ONE (17:46)
[2020-10-31] MEDS ORDERED: Lidocaine 1% 20 ML MDV ONE (18:04)
[2020-10-31] MEDS ORDERED: Vancomycin 1,000 MG VIAL ONE (18:04)
[2020-10-31] MEDS ORDERED: Naloxone 0.4 MG/ML INJ IVP PRN (20:17)
[2020-10-31] MEDS ORDERED: Melatonin 3 MG TABLET PO PRN (20:17)
[2020-10-31] MEDS ORDERED: *HR* Promethazine 25 MG/ML VIAL IM PRN (20:17)
[2020-10-31] MEDS ORDERED: Dextrose Gel 15 GM/37.5 ML TUBE PO PRN ×2 (20:17)
[2020-10-31] MEDS ORDERED: *HR* Dextrose 50 % in Water (Vial) 50 ML VIAL IVP PRN (20:17)
[2020-10-31] MEDS ORDERED: Acetaminophen 325 MG TABLET PO PRN (20:17)
[2020-10-31] MEDS ORDERED: *HR* LORazepam 0.5 MG TABLET PO PRN (20:17)
[2020-10-31] MEDS ORDERED: D5% in Water 1,000 ML IVC PRN (20:17)
[2020-10-31] MEDS ORDERED: Ondansetron 4 MG/2 ML VIAL IVP PRN (20:17)
[2020-10-31] MEDS: Loratadine 10 MG TABLET PO SCH (21:32)
[2020-10-31] MEDS: traZODone 50 MG TABLET PO SCH (21:32)
[2020-10-31] MEDS: Insulin DETEMIR 100 UNIT/ML X5UNITS SUBQ SCH (23:52)
[2020-11-01] MEDS: *HR* OxyCODONE Immed Rel 5 MG TABLET PO PRN ×2 (06:21→14:44)
[2020-11-01] MEDS: *HR* Heparin 5,000 UNIT/ML VIAL SQ SCH ×2 (06:23→17:16)
[2020-11-01] MEDS: Vancomycin 2,000 MG/520 ML IV.SOLN IVPB SCH (06:23)
[2020-11-01] MEDS: Insulin LISPRO 300 UNITS/3 ML VIAL SUBQ SCH ×4 (09:05→20:59)
[2020-11-01] MEDS: Aspirin Enteric Coated 81 MG Tablet PO SCH (09:17)
[2020-11-01] MEDS: Morphine Sulfate ER (12 HR) 15 MG TABLET.ER PO SCH ×2 (09:17→20:57)
[2020-11-01] MEDS: metroNIDAZOLE 500 MG TABLET PO SCH ×3 (09:18→20:58)
[2020-11-01] MEDS: Nystatin POWDER 30 GM BOTTLE TP SCH ×3 (09:18→21:01)
[2020-11-01] MEDS: levoFLOXacin 750 MG/150 ML 750 MG/150 ML BAG IVPB SCH (09:18)
[2020-11-01] MEDS: Sennosides/Docusate Sodium TABLET PO SCH ×2 (09:19→20:57)
[2020-11-01] MEDS: Pregabalin 50 MG CAPSULE PO SCH ×2 (09:19→20:58)
[2020-11-01 11:13] LABS: Hematocrit 32.6 % (35.3-44.9); Hemoglobin 9.7 g/dL (11.5-15.4); Mean Corpuscular HGB Conc 29.8 g/dL (31.6-35.5); Mean Corpuscular Hemoglobin 25.6 pg (28.0-33.3); Platelet Count 381 K/mcL (140-400); Red Blood Count 3.79 M/mcL (3.82-4.97); Red Cell Distribution Width 16.7 % (11.5-14.5); White Blood Count 13.4 K/mcL (4.3-11.1)
[2020-11-01 11:38] LABS: BUN/Creatinine Ratio 12 (6-26); Blood Urea Nitrogen 10 mg/dL (8-23); Carbon Dioxide 30 mEq/L (23-29); Chloride 100 mEq/L (98-107); Glucose 200 mg/dL (70-105); Magnesium 1.3 mg/dL (1.6-2.6); Osmolality,Calculated 287 (280-300); Phosphorous 3.1 mg/dL (2.7-4.5); Potassium 3.7 mEq/L (3.5-5.1); Sodium 136 mEq/L (136-145); eGFR For African Americans > 60 (> 60); eGFR For Non-African Americans > 60 (> 60)
[2020-11-01] MEDS ORDERED: Calcium Gluconate 1gm/50mL 1 GM/50 ML BAG IVPB SCH (18:00)
[2020-11-01] MEDS: traZODone 50 MG TABLET PO SCH (20:57)
[2020-11-01] MEDS: Loratadine 10 MG TABLET PO SCH (20:57)
[2020-11-01] MEDS: Insulin DETEMIR 100 UNIT/ML X5UNITS SUBQ SCH (20:59)
[2020-11-02] MEDS: *HR* OxyCODONE Immed Rel 5 MG TABLET PO PRN ×2 (03:48→14:26)
[2020-11-02] MEDS ORDERED: Calcium Gluconate 1gm/50mL 1 GM/50 ML BAG IVPB SCH (04:00)
[2020-11-02] MEDS: *HR* Heparin 5,000 UNIT/ML VIAL SQ SCH (06:33)
[2020-11-02 06:58] LABS: Hematocrit 28.2 % (35.3-44.9); Hemoglobin 8.5 g/dL (11.5-15.4); Mean Corpuscular HGB Conc 30.1 g/dL (31.6-35.5); Mean Corpuscular Hemoglobin 25.6 pg (28.0-33.3); Mean Corpuscular Volume 84.9 fL (83.0-100.0); Mean Platelet Volume 9.1 fL (9.4-12.4); Platelet Count 316 K/mcL (140-400); Red Blood Count 3.32 M/mcL (3.82-4.97); White Blood Count 11.4 K/mcL (4.3-11.1)
[2020-11-02 07:49] LABS: % Iron Saturation 11 % (15-50); BUN/Creatinine Ratio 13 (6-26); Blood Urea Nitrogen 11 mg/dL (8-23); Calcium 8.1 mg/dL (8.6-10.3); Carbon Dioxide 28 mEq/L (23-29); Chloride 102 mEq/L (98-107); Ferritin 97 ng/mL (10-120); Folate 5.7 ng/mL (3.0-16.0); Glucose 150 mg/dL (70-105); Iron 26 mcg/dL (50-170); Magnesium 1.9 mg/dL (1.6-2.6); Osmolality,Calculated 284 (280-300); Phosphorous 3.4 mg/dL (2.7-4.5); Potassium 3.8 mEq/L (3.5-5.1); Sodium 136 mEq/L (136-145); Transferrin 168 mg/dL (203-362); eGFR For African Americans > 60 (> 60); eGFR For Non-African Americans > 60 (> 60)
[2020-11-02] MEDS ORDERED: Iron Sucrose Complex 400 MG in 0.9 % Sodium Chloride 250 ML IVPB ONE (07:58)
[2020-11-02 08:03] LABS: Estimated Average Glucose 217 mg/dl; Hemoglobin A1C 9.2 %
[2020-11-02] MEDS: Vancomycin 2,000 MG/520 ML IV.SOLN IVPB SCH (08:03)
[2020-11-02] MEDS: Sennosides/Docusate Sodium TABLET PO SCH (08:04)
[2020-11-02] MEDS: Aspirin Enteric Coated 81 MG Tablet PO SCH (08:04)
[2020-11-02] MEDS: metroNIDAZOLE 500 MG TABLET PO SCH ×2 (08:04→15:44)
[2020-11-02] MEDS: Pregabalin 50 MG CAPSULE PO SCH (08:04)
[2020-11-02] MEDS: Morphine Sulfate ER (12 HR) 15 MG TABLET.ER PO SCH (08:05)
[2020-11-02] MEDS: levoFLOXacin 750 MG/150 ML 750 MG/150 ML BAG IVPB SCH (08:05)
[2020-11-02 08:23] VITALS: BP 138/73
[2020-11-02] MEDS: Insulin LISPRO 300 UNITS/3 ML VIAL SUBQ SCH ×3 (08:26→17:34)
[2020-11-02] MEDS ORDERED: Multivit/Ca/Min/Fe/FA 1 TAB TABLET PO SCH (09:00)
[2020-11-02] MEDS: Calcium Gluconate 1gm/50mL 1 GM/50 ML BAG IVPB SCH ×2 (09:38→10:43)
[2020-11-02] MEDS: Nystatin POWDER 30 GM BOTTLE TP SCH ×2 (10:45→15:45)
[2020-11-02 11:44] LABS: Influenza A PCR Negative (Negative); Influenza B PCR Negative (Negative); Resp. Syncytial Virus PCR Negative (Negative)
[2020-11-02 12:05] LABS: SARS-CoV-2 by PCR (In House) Negative (Negative)
== END 2020-11-02 18:34 | disposition other institution (70) | DRG 239 ==
LOC: CDU → SUATTDRO 19:19 → 3ANU 10-24 18:05
PROVIDERS: ADMIT Internal Medicine; ATTEND Internal Medicine